=== PATIENT | female | born 1960 | race Caucasian/White ===

== ENCOUNTER → 2018-03-25 12:05 | Outpatient (CLI) | payer OTHER, SELFPAY ==
--- NOTE | 2018-03-25 | DI.MG.S_ITS ---
BILATERAL DIGITAL SCREENING MAMMOGRAM 3D/2D WITH CAD: 03/25/2018 CLINICAL: Routine screening. Comparison is made to exams dated: 02/06/2014 mammogram, 01/07/2013 mammogram, and 10/06/2009 mammogram - [facility]. The tissue of both breasts is heterogeneously dense. This may lower the sensitivity of mammography. Current study was also evaluated with a Computer Aided Detection (CAD) system. No significant masses, calcifications, or other findings are seen in either breast. There has been no significant interval change. IMPRESSION: NEGATIVE There is no mammographic evidence of malignancy. A 1 year screening mammogram is recommended. This exam was interpreted at Station ID: [id number]. NOTE: For mammograms, a report in lay terms will be sent to the patient. Approximately 15% of breast malignancies will not be visualized mammographically. In the management of a palpable breast mass, a negative mammogram must not discourage biopsy of a clinically suspicious lesion. Electronically Signed By: Debra ingram/sera:03/26/2018 10:32:16 letter sent: Normal Exam ACR BI-RADS Category 1: Negative [id number]
== END ==
PROVIDERS: PCP Internal Medicine; Visit Provider Physician Assistant
DX: Z12.31 Encounter for screening mammogram for malignant neoplasm of breast (principal)
CPT/HCPCS: 77063; 77067

== ENCOUNTER → 2018-05-31 09:53 | Outpatient (CLI) | payer OTHER, SELFPAY ==
[2018-05-31 11:27] LABS: Alanine Aminotransferase 26 IU/L (9-52); Albumin 4.1 g/dL (3.5-5.0); Albumin Globulin Ratio 1.3 (1.0-2.8); Alkaline Phosphatase 54 U/L (38-126); Aspartate Aminotransferase 19 IU/L (14-36); Bilirubin Total 0.3 mg/dL (0.2-1.3); Blood Urea Nitrogen 18 mg/dL (7-17); Calcium 9.4 mg/dL (8.4-10.2); Carbon Dioxide 27 mmol/L (22-32); Chloride 104 mmol/L (98-107); Estimated Glomerular Filt Rate > 60.0 mL/min (>60); Globulin 3.1 g/dL (1.7-4.1); Glucose 92 mg/dL (80-110); HEMOLYSIS < 15 (0-50); Potassium 3.8 mmol/L (3.4-5.1); Sodium 139 mmol/L (137-145); Total Protein 7.2 g/dL (6.3-8.2)
== END ==
PROVIDERS: Family Provider Internal Medicine; PCP Internal Medicine; Visit Provider Physician Assistant
DX: B35.1 Tinea unguium (principal)
CPT/HCPCS: 36415; 80053

== ENCOUNTER → 2018-08-15 08:21 | Outpatient (CLI) | payer OTHER, SELFPAY ==
[2018-08-15 11:25] LABS: Cholesterol 225 mg/dL (140-199); HDL Cholesterol 71 mg/dL (40-60); LDL Cholesterol Calculated 126 mg/dL (<100); Triglycerides 138 mg/dL (35-150)
== END ==
PROVIDERS: PCP Internal Medicine; Visit Provider Internal Medicine
DX: Z00.00 Encounter for general adult medical examination without abnormal findings (principal)
CPT/HCPCS: 36415; 80061

== ENCOUNTER 2019-02-26 11:05 | Day surgery (SDC) | payer OTHER, SELFPAY ==
[2019-02-26] VITALS (8 sets, daily range): BP systolic 106–142; BP diastolic 66–81; PULSE 69–75; RESP 12–18; TEMP 36–36.6; O2SAT 93–100; BMI 23.5
[2019-02-26] MEDS: SODIUM CHLORIDE 0.9% 1,000 ML 21 ML IV ×2 (11:46→13:16)
--- NOTE | 2019-02-26 12:50 | PM.HP.1 ---
History of Present Illness History of Present Illness Date Patient Seen: 02/26/19 Time Patient Seen: 12:50 Chief complaint: [id number] Narrative: screening colonoscopy Patient History Family & Social History Social History: household members spouse Meds Home Medications and Allergies Home Medications Medication Instructions Recorded Confirmed Type amlodipine 2.5 mg PO DAILY 02/26/19 02/26/19 History losartan 100 mg PO DAILY 02/26/19 02/26/19 History Allergies Allergy/AdvReac Type Severity Reaction Status Date / Time No Known Drug Allergies Allergy Verified 02/26/19 11:35 Exam Vital Signs (past 8 hours): - 02/26/19 11:36 Temperature 97.9 F Pulse Rate 72 Respiratory Rate 18 Blood Pressure 106/68 Pulse Oximetry 96 Oxygen Delivery Method Room Air Narrative Exam Narrative: Oropharynx free of lesions Chest clear to auscultation percussion Cardiac exam reveals no S3 or murmur Assessment & Plan Assessment & Plan narrative: Need for screening colonoscopy with last colonoscopy over 5 years ago. Risks, benefits, alternatives been explained. Further recommendations will follow the results for colonoscopy.
--- NOTE | 2019-02-26 12:54 | PM.OP.ENDO ---
Operative Date/Time/Diagnoses Date of procedure: 02/26/19 Time of procedure: 12:54 Pre-op diagnosis: See indication and findings Procedure & Clinicians Study performed: Colonoscopy Indications: Screening Surgeon: Marianne Luna Procedure Notes Procedure in detail: After informed consent was obtained the patient was placed in left lateral decubitus position. The video colonoscope was introduced the rectum slowly advanced cecum. On slow withdrawal mucosa was carefully examined. The scope was removed. The patient tolerated the procedure well. Blood loss none Complications none Sedation Total sedation time 19 minutes Versed 9 mg fentanyl 150 micro g IV titration Findings 1. Scattered very small diverticulosis through the sigmoid and left colon 2. Otherwise negative colonoscopy to cecum [place] does not need follow-up colonoscopy for another 10 years. All
[2019-02-26] MEDS: fentaNYL 250 MCG/5 ML INJ IV (13:10)
[2019-02-26] MEDS: MIDAZOLAM 5 MG/5 ML VIAL 3 MG IV (13:10)
[2019-02-26] MEDS: MIDAZOLAM 2 MG/2 ML VIAL 9 MG IV (13:10)
--- NOTE | 2019-02-26 14:29 | SUR.PHASEII ---
pt c/o 10/16 pain in abdomen. Abdomen observed to be distended and painful which palpated. Bowel sounds positive in all four quadrants. Dr. Luna made aware by SCARLETT Arzola. Dr. Luna will come to access pt shortly. Re-positioned pt in bed. pt reported slight relief from re positioning. bed in lowest position and call light given to pt. pt at bedside.
--- NOTE | 2019-02-26 14:38 | SUR.PHASEII ---
Dr. Luna at bedside, assessing pt. Per Dr. Luna, pt instructed to keep working on passing the gas. pt voices understanding.
== END 2019-02-26 15:53 | disposition home or self-care (01) ==
PROVIDERS: PCP Internal Medicine; Visit Provider Internal Medicine Gastroenterology
PROC: 0DJD8ZZ Inspection of Lower Intestinal Tract, Via Natural or Artificial Opening Endoscopic (ICD-10-PCS; CPT 45378; principal; 2019-02-26 12:30)
DX: Z12.11 Encounter for screening for malignant neoplasm of colon (principal); K57.30 Diverticulosis of large intestine without perforation or abscess without bleeding
CPT/HCPCS: 45378; J2250; J3010

== ENCOUNTER → 2019-10-09 17:42 | Outpatient (CLI) | payer OTHER, SELFPAY ==
--- NOTE | 2019-10-09 17:44 | DI.MRI.S_ITS ---
PROCEDURE: MR LUMBAR SPINE WO CON INDICATIONS: lumbago with sciatica TECHNIQUE: Noncontrast sagittal T1 spin echo and T2 fast echo, sagittal STIR, axial T1 and T2 fast spin echo through the lumbar spine. In cases with scoliosis, additional coronal T2 fast spin echo may be performed. COMPARISON: [facility], MR, L-SPINE WITHOUT CONTRAST, 12/15/2014, 19:01. [facility], MR, MR LUMBAR SPINE WITHOUT CONTRAST, 02/21/2018, 14:38. FINDINGS: Image quality: Excellent. Alignment and Curvature: There is grade 1 retrolisthesis of L5 on S1, trace retrolisthesis of L4 on L5, unchanged. Bone Marrow: Marrow is of normal overall signal. Mild to moderate reactive endplate changes are present at L3-4, minimal to mild L4-5 and L5-S1. No acute vertebral body compression fractures. Spinal Cord: Conus medullaris terminates at the L2 level. Visualized cord demonstrates normal signal and size. Tarlov cysts are present at S1-S2. Paraspinous Soft Tissues: No paravertebral masses. Discs: Moderate desiccation is present throughout the lumbar spine. L1-L2: Mild disc bulge including a right posterior lateral protrusion. Mild spinal stenosis. Minimal to mild right foraminal narrowing with facet and ligamentum flavum hypertrophy. No interval change. L2-L3: Mild disc bulge with mild spinal stenosis. Mild bilateral foraminal narrowing with facet and ligamentum flavum hypertrophy. No interval change. L3-L4: Mild disc bulge with severe spinal stenosis and canal compression, unchanged. Mild to moderate right and mild left foraminal narrowing, minimally progressive on the right. Facet and ligamentum flavum hypertrophy are present. L4-L5: Mild disc bulge with moderate spinal stenosis, slightly progressive. Mild bilateral foraminal narrowing with facet and ligamentum flavum hypertrophy. No interval change. L5-S1: Mild disc bulge including a new right posterior paracentral protrusion. There is mild compromise of the right lateral recess. Moderate to severe left foraminal narrowing with slight flattening of the exiting left L5 nerve root. Minimal right foraminal narrowing. Facet and ligamentum flavum hypertrophy are present. IMPRESSION: 1. Multilevel degenerative changes with areas of interval progression as above. 2. Multiple level spinal stenosis most severe at L3-4 secondary to disc bulge which contribute intact the facets are segment of arthropathy. 3. New protrusion at L5-S1 causing compromise of the right lateral recess. Dictated by: Mira Mcgarry M.D. on 10/10/2019 at 11:05 Approved by: Mira Mcgarry M.D. on 10/10/2019 at 11:43
== END ==
PROVIDERS: PCP Internal Medicine; Referring Provider Internal Medicine
DX: M51.17 Intervertebral disc disorders with radiculopathy, lumbosacral region (principal); M51.16 Intervertebral disc disorders with radiculopathy, lumbar region; M48.061 Spinal stenosis, lumbar region without neurogenic claudication; M48.07 Spinal stenosis, lumbosacral region; M47.26 Other spondylosis with radiculopathy, lumbar region; M47.27 Other spondylosis with radiculopathy, lumbosacral region; G89.29 Other chronic pain
CPT/HCPCS: 72148

== ENCOUNTER → 2020-04-19 14:59 | Outpatient (CLI) | payer OTHER, SELFPAY ==
--- NOTE | 2020-04-19 | DI.MG.S_ITS ---
BILATERAL DIGITAL SCREENING MAMMOGRAM 3D/2D WITH CAD: 04/19/2020 CLINICAL: Routine screening. Comparison is made to exams dated: 03/25/2018 mammogram, 02/06/2014 mammogram, and 01/07/2013 mammogram - [facility]. The tissue of both breasts is heterogeneously dense. This may lower the sensitivity of mammography. Current study was also evaluated with a Computer Aided Detection (CAD) system. No significant masses, calcifications, or other findings are seen in either breast. There has been no significant interval change. IMPRESSION: NEGATIVE There is no mammographic evidence of malignancy. A 1 year screening mammogram is recommended. This exam was interpreted at Station ID: [id number]. NOTE: For mammograms, a report in lay terms will be sent to the patient. Approximately 15% of breast malignancies will not be visualized mammographically. In the management of a palpable breast mass, a negative mammogram must not discourage biopsy of a clinically suspicious lesion. Electronically Signed By: Teofilo alvarado/sera:04/19/2020 16:54:22 letter sent: Normal Exam ACR BI-RADS Category 1: Negative [id number]
--- NOTE | 2020-04-19 | DI.RAD.S_ITS ---
PROCEDURE: XR DEXA AXIAL SKELETON INDICATIONS: asymptomatic menopausal state screening COMPARISON: None. FINDINGS: This blank DEXA report has been sent in error by the PACS system. The correct and complete report will be forthcoming in 1-2 days. Thank you for your patience and understanding. Dictated by: Itzel Slade MD, PhD on 04/19/2020 at 17:11 Approved by: Itzel Slade MD, PhD on 04/19/2020 at 17:11
== END ==
PROVIDERS: PCP Internal Medicine; Referring Provider Family Medicine; Visit Provider Family Medicine
DX: Z12.31 Encounter for screening mammogram for malignant neoplasm of breast (principal); M85.852 Other specified disorders of bone density and structure, left thigh; Z78.0 Asymptomatic menopausal state; Z82.62 Family history of osteoporosis
CPT/HCPCS: 77063; 77067; 77080

== ENCOUNTER → 2020-07-23 08:28 | Outpatient (CLI) | payer OTHER, SELFPAY ==
--- NOTE | 2020-07-23 | DI.RAD.S_ITS ---
PROCEDURE: FL UPPER GI W AIR INDICATIONS: DYSPHAGIA COMPARISON: None. FINDINGS: KUB: Preprocedural photo mask processor film demonstrates a normal bowel gas pattern. No suspicious abdominal calcifications. Visualized solid organ contours appear normal. Bony structures appear unremarkable. Esophagus: Esophageal mucosa is normal on air-contrast views. On single-contrast views, there is normal esophageal peristalsis. No strictures, extrinsic mass effects, or diverticula. No hiatal hernia or elicited gastroesophageal reflux. There is normal transit of a calibrated barium tablet through the esophagus. Stomach: The stomach is normally distensible, with normal rugal fold thickness. No mucosal masses or ulcers. Pylorus and duodenal bulb appear normal in morphology. Duodenal folds are normal in thickness as well. 13 millimeter barium tablet administered at end of study readily passed from the oral cavity into the stomach. IMPRESSION: Normal examination. Dictated by: Itzel Slade MD, PhD on 07/23/2020 at 11:34 Approved by: Itzel Slade MD, PhD on 07/23/2020 at 11:36
--- NOTE | 2020-07-23 08:32 | DI.RAD.S_ITS ---
PROCEDURE: XR WRIST RT MIN 3V INDICATIONS: RIGHT WRIST PAIN TECHNIQUE: 4 views of the wrist were acquired. COMPARISON: None. FINDINGS: Bones: No fractures or dislocations. No suspicious bony lesions. Accessory ossicle noted adjacent to the ulnar styloid process. Mild radiocarpal joint and 1st CMC joint osteoarthritis. Scaphoid view: Scaphoid is intact Soft tissues: No suspicious soft tissue calcifications. IMPRESSION: No fracture. No acute osseous lesion. If symptoms and/or clinical suspicion for pathology persists, further assessment with repeat radiographs (7-10 days) or advanced imaging (e.g. CT, MRI or bone scan) should be considered. Dictated by: Itzel Slade MD, PhD on 07/23/2020 at 17:03 Approved by: Itzel Slade MD, PhD on 07/23/2020 at 17:05
--- NOTE | 2020-07-23 08:32 | DI.RAD.S_ITS ---
PROCEDURE: XR HAND LT MIN 3V INDICATIONS: BILATERAL HAND PAIN TECHNIQUE: 3 views of the hand(s) acquired. COMPARISON: None. FINDINGS: Bones: No fractures or dislocations. Carpal bones are normally aligned. No suspicious bony lesions. Large osseous spur involving the trapezium. Mild 1st CMC joint osteoarthritis. Mild 1st, 2nd, 4th and 5th DIP joint osteoarthritis. Soft tissues: No suspicious soft tissue calcifications. IMPRESSION: Osteoarthritis as described above. Dictated by: Itzel Slade MD, PhD on 07/23/2020 at 17:07 Approved by: Itzel Slade MD, PhD on 07/23/2020 at 17:08
--- NOTE | 2020-07-23 08:32 | DI.RAD.S_ITS ---
PROCEDURE: XR HAND RT MIN 3V INDICATIONS: BILATERAL HAND PAIN TECHNIQUE: 3 views of the hand(s) acquired. COMPARISON: None. FINDINGS: Bones: No fractures or dislocations. Carpal bones are normally aligned. No suspicious bony lesions. Mild 1st CMC joint osteoarthritis. Mild osteoarthritis involving the 2nd, 3rd and 5th PIP joints as well as the 1st through 5th DIP joints. Soft tissues: No suspicious soft tissue calcifications. IMPRESSION: Osteoarthritis as described above. Dictated by: Itzel Slade MD, PhD on 07/23/2020 at 17:06 Approved by: Itzel Slade MD, PhD on 07/23/2020 at 17:07
== END ==
PROVIDERS: PCP Family Medicine; Referring Provider Family Medicine; Visit Provider Family Medicine
DX: R13.10 Dysphagia, unspecified (principal); M79.641 Pain in right hand; M25.531 Pain in right wrist; M79.642 Pain in left hand; M18.0 Bilateral primary osteoarthritis of first carpometacarpal joints; M19.042 Primary osteoarthritis, left hand; M19.041 Primary osteoarthritis, right hand; M19.031 Primary osteoarthritis, right wrist
CPT/HCPCS: 73110; 73130; 74240; 74246

== ENCOUNTER 2021-03-05 11:11 | Emergency (ER) | payer OTHER, SELFPAY ==
[2021-03-05] VITALS (7 sets, daily range): BP systolic 128–149; BP diastolic 74–84; PULSE 59–72; RESP 14–25; TEMP 36.4; O2SAT 95–99; BMI 25.1
[2021-03-05 11:37] LABS: Appearance Urine UA CLEAR; Bilirubin Urine UA NEGATIVE (NEGATIVE); Color Urine UA YELLOW; Glucose Urine UA NEGATIVE (Negative); Ketones Urine UA NEGATIVE (NEGATIVE); Leukocyte Esterase Urine UA NEGATIVE (NEGATIVE); Nitrite Urine UA NEGATIVE (Negative); Occult Blood Urine UA TRACE-LYSED (Negative); Protein Urine UA TRACE (Negative); Specific Gravity Urine UA 1.015 (1.000-1.035); Urobilinogen Urine UA 0.2 E.U./dL (0.2)
--- NOTE | 2021-03-05 11:40 | ED.BACK ---
HPI - Back Pain/Injury General Chief Complaint: Back Pain/Injury Stated Complaint: left lower flank pain Time Seen by Provider: 03/05/21 11:33 Source: patient Mode of arrival: Ambulatory Limitations: no limitations History of Present Illness HPI Narrative: Patient is a 60-year-old female who is here for evaluation of left-sided flank pain and now abdominal discomfort. Symptoms started approximately 24 hours ago. No urinary symptoms. Has had a hysterectomy but no prior abdominal surgeries. No change in bowel habits. No fevers. Some nausea but no vomiting. Has not tried anything for the symptoms prior to arrival. Has never had a kidney stone. No history of diverticulitis. Related Data Home Medications Medication Instructions Recorded Confirmed amlodipine 2.5 mg tablet 2.5 mg PO DAILY 02/26/19 11/10/19 losartan 100 mg tablet 100 mg PO DAILY 02/26/19 11/10/19 gabapentin 100 mg capsule 100 mg PO DAILY 11/10/19 11/10/19 Previous Rx's Medication Instructions Recorded CMP Estriol Cream 0.1% See Rx Instructions .ROUTE 12/24/20 .COMPLEX #30 gram ondansetron 4 mg disintegrating 4 mg PO Q6H PRN #14 tab 03/05/21 tablet Allergies Allergy/AdvReac Type Severity Reaction Status Date / Time No Known Drug Allergies Allergy Verified 11/10/19 07:58 Review of Systems Constitutional Constitutional: Reports as per HPI and Reports system reviewed and no additional complaints, except as documented Cardiovascular Cardiovascular: Reports system reviewed and no additional complaints, except as documented Respiratory Respiratory: Reports system reviewed and no additional complaints, except as documented Gastrointestinal Gastrointestinal: Reports as per HPI and Reports system reviewed and no additional complaints, except as documented Genitourinary Genitourinary: Reports system reviewed and no additional complaints, except as documented Musculoskeletal Comments: Left flank/back pain Integumentary/Breasts Skin/Breast: Reports system reviewed and no additional complaints, except as documented Hematologic/Lymphatic On Anticoagulants: No Patient History Medical History H/O vaginal delivery Hypertension Surgical History H/O hysterectomy for benign disease Social History household members: spouse Smoking Status: Never smoker Smoking Status: Never smoker Substance Use Type: does not use Exam Initial Vital Signs Initial Vital Signs: Vital Signs Temperature 97.6 F 03/05/21 11:23 Pulse Rate 72 03/05/21 11:23 Respiratory Rate 16 03/05/21 11:23 Blood Pressure 128/75 03/05/21 11:23 Pulse Oximetry 97 03/05/21 11:23 Const General: cooperative and healthy appearing [facility] Head: normal to inspection and normocephalic Resp Effort & Inspection: normal respiratory effort Auscultation: clear to auscultation bilaterally Cardio Rate: regular rate Rhythm: regular rhythm GI Palpation: soft, No firm and tender (Diffusely tender) Back/Spine/Pelvis Back: CVA tenderness left Skin General: no rashes or lesions noted Neuro General: patient alert, patient awake and moves all extremities Extrem General: normal to inspection and No edema Psych Appearance: grossly normal and well kempt Course Orders Ordered: ED Orders 03/05/21 11:32 Urinalysis and Microscopic Stat Urine Culture Stat 03/05/21 11:35 Complete Blood Count AUTO DIFF Stat Comprehensive Metabolic Panel Stat Lipase Stat Partial Thromboplastin Time Stat Prothrombin Time INR Stat 03/05/21 11:45 CT abdomen pelvis w con Stat Discontinued Medications Sodium Chloride (Normal Saline 0.9%) 1,000 mls @ 1,000 mls/hr IV BOLUS ONE Stop: 03/05/21 12:39 Last Admin: 03/05/21 11:51 Dose: 1,000 mls/hr Documented by: ZOHREH Morphine Sulfate (Morphine 4 Mg/Ml Inj) 4 mg IV NOW ONE Stop: 03/05/21 11:41 Last Admin: 03/05/21 11:51 Dose: 4 mg Documented by: ZOHREH Ondansetron HCl (Ondansetron 4 Mg Odt) 4 mg PO NOW ONE Stop: 03/05/21 11:30 Last Admin: 03/05/21 11:50 Dose: 4 mg Documented by: ZOHREH Vital Signs Vital signs: Vital Signs - 8 hr 03/05/21 11:23 03/05/21 11:47 03/05/21 11:50 Temperature 97.6 F Pulse Rate 72 60 59 L Respiratory Rate 16 14 15 Blood Pressure 128/75 149/82 H Pulse Oximetry 97 97 97 03/05/21 12:00 03/05/21 12:49 03/05/21 12:50 Temperature Pulse Rate 62 62 60 Respiratory Rate 25 H 20 Blood Pressure 141/84 H 141/75 H Pulse Oximetry 99 98 99 03/05/21 13:00 Temperature Pulse Rate 65 Respiratory Rate 21 Blood Pressure 134/74 Pulse Oximetry 95 MDM - Back Pain/Injury Lab Data Attestation: I reviewed the patient's lab results. Result diagrams: 03/05/21 11:35 03/05/21 11:35 Labs: Lab Results 03/05/21 03/05/21 03/05/21 Range/Units 11:32 11:35 11:35 WBC 5.7 (4.5-11.0) X10^3/uL RBC 4.66 (4.0-5.2) X10^6/uL Hgb 13.4 (12.0-16.0) g/dL Hct 39.5 (36-46) % MCV 84.6 (80-100) fL MCH 28.6 (26-34) PG MCHC 33.8 (30-36) % RDW 12.8 (11.6-14.8) % Plt Count 275 (150-400) X10^3/uL Neut % (Auto) 75.7 H (50-75) % Lymph % (Auto) 17.5 L (25-40) % [place] % (Auto) 5.1 (3-14) % Eos % (Auto) 1.0 L (2-4) % Baso % (Auto) 0.7 (0-2) % Neut # (Auto) 4300 (7653-1409) /uL Lymph # (Auto) 1000 L (0527-3817) /uL [place] # (Auto) 300 (0-900) /uL Eos # (Auto) 100 (0-450) /uL Baso # (Auto) 0 (0-100) /uL PT 11.3 (10.1-12.7) SECONDS INR 1.0 (0.9-1.3) APTT 30 (26.4-36.2) SECONDS Sodium (137-145) mmol/L Potassium (3.4-5.1) mmol/L Chloride (98-107) mmol/L Carbon Dioxide (22-32) mmol/L BUN (7-17) mg/dL Creatinine (0.52-1.04) mg/dL Estimated GFR (>60) mL/min BUN/Creatinine Ratio (6-22) Glucose (80-110) mg/dL Calcium (8.4-10.2) mg/dL Total Bilirubin (0.2-1.3) mg/dL AST (14-36) IU/L ALT (<35) IU/L Alkaline Phosphatase (38-126) U/L Total Protein (6.3-8.2) g/dL Albumin (3.5-5.0) g/dL Globulin (1.7-4.1) g/dL Albumin/Globulin Ratio (1.0-2.8) Lipase (23-300) U/L Urine Color Yellow Urine Appearance Clear Urine pH 8.0 (4.5-8.0) Ur Specific [place] 1.015 (1.000-1.035) Urine Protein Trace H (Negative) Urine Glucose (UA) Negative (Negative) g/dL Urine Ketones Negative (NEGATIVE) Urine Occult Blood Trace-lysed (Negative) Urine Nitrate Negative (Negative) Urine Bilirubin Negative (NEGATIVE) Urine Urobilinogen 0.2 (0.2) E.U./dL Ur Leukocyte Esterase Negative (NEGATIVE) Urine RBC 1-5/hpf (0-5/HPF) Urine WBC 0-1/hpf (0-5/HPF) Ur Squamous Epith Cells 1-5 /hpf (0-5/HPF) Amorphous Sediment 2+ Urine Bacteria Few (2-10) H (None) Urine Mucus 1+ H (Negative) Ur Culture Indicated? Specimen cultured 03/05/21 Range/Units 11:35 WBC (4.5-11.0) X10^3/uL RBC (4.0-5.2) X10^6/uL Hgb (12.0-16.0) g/dL Hct (36-46) % MCV (80-100) fL MCH (26-34) PG MCHC (30-36) % RDW (11.6-14.8) % Plt Count (150-400) X10^3/uL Neut % (Auto) (50-75) % Lymph % (Auto) (25-40) % [place] % (Auto) (3-14) % Eos % (Auto) (2-4) % Baso % (Auto) (0-2) % Neut # (Auto) (2431-9827) /uL Lymph # (Auto) (2322-8540) /uL [place] # (Auto) (0-900) /uL Eos # (Auto) (0-450) /uL Baso # (Auto) (0-100) /uL PT (10.1-12.7) SECONDS INR (0.9-1.3) APTT (26.4-36.2) SECONDS Sodium 138 (137-145) mmol/L Potassium 4.2 (3.4-5.1) mmol/L Chloride 103 (98-107) mmol/L Carbon Dioxide 28 (22-32) mmol/L BUN 14 (7-17) mg/dL Creatinine 0.85 (0.52-1.04) mg/dL Estimated GFR > 60.0 (>60) mL/min BUN/Creatinine Ratio 16.5 (6-22) Glucose 106 (80-110) mg/dL Calcium 9.2 (8.4-10.2) mg/dL Total Bilirubin 0.4 (0.2-1.3) mg/dL AST 23 (14-36) IU/L ALT 18 (<35) IU/L Alkaline Phosphatase 47 (38-126) U/L Total Protein 7.5 (6.3-8.2) g/dL Albumin 4.5 (3.5-5.0) g/dL Globulin 3.0 (1.7-4.1) g/dL Albumin/Globulin Ratio 1.5 (1.0-2.8) Lipase 196 (23-300) U/L Urine Color Urine Appearance Urine pH (4.5-8.0) Ur Specific [place] (1.000-1.035) Urine Protein (Negative) Urine Glucose (UA) (Negative) g/dL Urine Ketones (NEGATIVE) Urine Occult Blood (Negative) Urine Nitrate (Negative) Urine Bilirubin (NEGATIVE) Urine Urobilinogen (0.2) E.U./dL Ur Leukocyte Esterase (NEGATIVE) Urine RBC (0-5/HPF) Urine WBC (0-5/HPF) Ur Squamous Epith Cells (0-5/HPF) Amorphous Sediment Urine Bacteria (None) Urine Mucus (Negative) Ur Culture Indicated? Imaging Data CT scan - abdomen/pelvis: Radiologist's Impression: [address] [address] [address] Scan Report Signed Patient: Shiloh Whittaker MR#: [id number] : 1960 Acct:[id number] Age/Sex: 60 / F Date of Service: 03/05/21 Loc: ED Accession Number: [id number] ?? Procedure: CT abdomen pelvis w con Ordering Provider: Dom Parikh D.O. PROCEDURE:? CT ABDOMEN PELVIS W CON ? INDICATIONS:? Left-sided abdominal pain ? TECHNIQUE:? After the administration of IV contrast, axial sections were acquired from the lung bases to the pubic symphysis.? Coronal and sagittal reformats were performed.? For radiation dose reduction, the following was used:? automated exposure control, adjustment of mA and/or kV according to patient size. ? COMPARISON:? [facility], , [place] ABDOMEN COMPLETE, 02/08/2018, 13:29. ? FINDINGS:? Image quality:? Excellent.? ? Lung bases:? Unremarkable.? ? Heart:? No significant findings. ? ? ABDOMEN: Liver:? A likely cavernous liver hemangioma can be seen involving the right lateral liver measures 21 x 25 mm in greatest axial dimension.? Peripheral puddling of contrast can be seen.? The liver demonstrates normal size and demonstrates no additional focal abnormalities. Gallbladder:? Layering gallstones can be seen within the gallbladder. Biliary ducts:? Unremarkable.? ? Pancreas:? Unremarkable.? ? The pancreatic duct is not dilated. Spleen:? Unremarkable.? ? Adrenal Glands:? Unremarkable.? ? Kidneys and Ureters:? Unremarkable.? ? ? Stomach and Bowel:? Stomach, small bowel loops, and colon are unremarkable.? Distal colonic diverticulosis is seen, without findings active diverticulitis. A normal appendix is incidentally noted.? Peritoneum:? No abnormal intraperitoneal fluid.? No free air.? ? Ventral Wall: A mild periumbilical hernia is seen, containing fat. ? Abdominal Nodes:? No retroperitoneal or mesenteric adenopathy by size criteria.? Vessels:? Aorta and inferior vena cava are normal in size.? ? PELVIS: Pelvic Organs: This patient is status post hysterectomy. No adnexal masses are seen.? Bladder:? Unremarkable.? ? Pelvic Nodes: No enlarged lymph nodes.? Miscellaneous: No inguinal hernias are seen. ? ? ? Bones:? Lumbar spine degenerative changes are seen, with milder degenerative changes seen elsewhere. ? ? IMPRESSION:? ? A cause of left-sided abdominal pain is not seen. ? There is distal colonic diverticulosis, without findings of active diverticulitis. ? Incidental note is made of: Liver hemangioma Gallstones Mild fat containing periumbilical hernia Normal appendix Hysterectomy Lumbar spine degenerative change ? Dictated by: Robbie Batista M.D. on 03/05/2021 at 11:48 ? ? Approved by: Robbie Batista M.D. on 03/05/2021 at 11:51? MDM Narrative Medical decision making narrative: Patient does have a benign abdominal exam. Labs are unremarkable. CT scan shows diverticulosis but no signs of diverticulitis. No signs of pyelonephritis. No signs of kidney/ureteral stones. Normal appendix. She does have gallbladder stones however she has no pain in the right upper quadrant. There is no skin rashes over the area concerning for zoster. Unsure the exact etiology of the patient's symptoms but does not appear to be an infectious nor surgical etiology today. I did discuss this with her and her was at bedside. I did discuss strict return precautions. They expressed understanding and agreement. Discharge Plan Departure Patient Disposition: Home Clinical Impression: Left flank pain Activity Restrictions/Additional Instructions: Your workup here in the emergency department is very reassuring. Your labs are unremarkable. There is no signs of any infection. I do recommend you take all of your medications as directed. Return to the emergency department for any new or worsening symptoms Prescriptions: New ondansetron 4 mg tablet,disintegrating 4 mg PO Q6H PRN (Reason: nausea and vomiting) Qty: 14 0RF No Action CMP Estriol Cream 0.1% See Rx Instructions .ROUTE .COMPLEX Qty: 30 3RF Rx Instructions: Apply 1 gram to vagina at bedtime 2 times per week gabapentin 100 mg capsule 100 mg PO DAILY 0RF amlodipine 2.5 mg Tablet 2.5 mg PO DAILY 0RF losartan 100 mg Tablet 100 mg PO DAILY 0RF Referrals: Sean Rey MD [Primary Care Provider] -
[2021-03-05 11:43] LABS: RBC Urine 1-5/HPF (0-5/HPF); WBC Urine 0-1/HPF (0-5/HPF)
[2021-03-05 11:44] LABS: Amorphous Sediment Urine 2+; Bacteria Urine Few (2-10); Culture Indicated Urine Specimen Cultured; Mucus Urine 1+ (Negative); Squamous Epithelial Cell Urine 1-5 /HPF (0-5/HPF)
--- NOTE | 2021-03-05 11:45 | DI.CT.S_ITS ---
PROCEDURE: CT ABDOMEN PELVIS W CON INDICATIONS: Left-sided abdominal pain TECHNIQUE: After the administration of IV contrast, axial sections were acquired from the lung bases to the pubic symphysis. Coronal and sagittal reformats were performed. For radiation dose reduction, the following was used: automated exposure control, adjustment of mA and/or kV according to patient size. COMPARISON: [facility], US, US ABDOMEN COMPLETE, 02/08/2018, 13:29. FINDINGS: Image quality: Excellent. Lung bases: Unremarkable. Heart: No significant findings. ABDOMEN: Liver: A likely cavernous liver hemangioma can be seen involving the right lateral liver measures 21 x 25 mm in greatest axial dimension. Peripheral puddling of contrast can be seen. The liver demonstrates normal size and demonstrates no additional focal abnormalities. Gallbladder: Layering gallstones can be seen within the gallbladder. Biliary ducts: Unremarkable. Pancreas: Unremarkable. The pancreatic duct is not dilated. Spleen: Unremarkable. Adrenal Glands: Unremarkable. Kidneys and Ureters: Unremarkable. Stomach and Bowel: Stomach, small bowel loops, and colon are unremarkable. Distal colonic diverticulosis is seen, without findings active diverticulitis. A normal appendix is incidentally noted. Peritoneum: No abnormal intraperitoneal fluid. No free air. Ventral Wall: A mild periumbilical hernia is seen, containing fat. Abdominal Nodes: No retroperitoneal or mesenteric adenopathy by size criteria. Vessels: Aorta and inferior vena cava are normal in size. PELVIS: Pelvic Organs: This patient is status post hysterectomy. No adnexal masses are seen. Bladder: Unremarkable. Pelvic Nodes: No enlarged lymph nodes. Miscellaneous: No inguinal hernias are seen. Bones: Lumbar spine degenerative changes are seen, with milder degenerative changes seen elsewhere. IMPRESSION: A cause of left-sided abdominal pain is not seen. There is distal colonic diverticulosis, without findings of active diverticulitis. Incidental note is made of: Liver hemangioma Gallstones Mild fat containing periumbilical hernia Normal appendix Hysterectomy Lumbar spine degenerative change Dictated by: Robbie Batista M.D. on 03/05/2021 at 11:48 Approved by: Robbie Batista M.D. on 03/05/2021 at 11:51
[2021-03-05 11:49] LABS: Add Manual Diff / Slide Review NO; Basophils Absolute Auto 0 /uL (0-100); Basophils Percent Auto 0.7 % (0-2); Eosinophils Absolute Auto 100 /uL (0-450); Hematocrit 39.5 % (36-46); Hemoglobin 13.4 g/dL (12.0-16.0); Lymphocytes Absolute Auto 1000 /uL (1100-4500); Lymphocytes Percent Auto 17.5 % (25-40); Mean Corpuscular HGB Conc 33.8 % (30-36); Mean Corpuscular Hemoglobin 28.6 PG (26-34); Mean Corpuscular Volume 84.6 fL (80-100); Monocytes Absolute Auto 300 /uL (0-900); Monocytes Percent Auto 5.1 % (3-14); Neutrophils Absolute Auto 4300 /uL (1500-7000); Neutrophils Percent Auto 75.7 % (50-75); Platelet Count 275 X10^3/uL (150-400); Red Blood Cell Count 4.66 X10^6/uL (4.0-5.2); Red Cell Distribution Width 12.8 % (11.6-14.8); White Blood Cell Count 5.7 X10^3/uL (4.5-11.0)
[2021-03-05] MEDS: ONDANSETRON 4 MG ODT PO (11:50)
[2021-03-05] MEDS: SODIUM CHLORIDE 0.9% 1,000 ML 1000 ML IV (11:51)
[2021-03-05] MEDS: MORPHINE 4 MG/ML INJ IV (11:51)
[2021-03-05 11:56] LABS: Prothrombin Time 11.3 SECONDS (10.1-12.7)
[2021-03-05 11:58] LABS: PTT Partial Thromboplastin Tim 30 SECONDS (26.4-36.2)
[2021-03-05 12:00] LABS: Alanine Aminotransferase 18 IU/L (<35); Albumin 4.5 g/dL (3.5-5.0); Albumin Globulin Ratio 1.5 (1.0-2.8); Alkaline Phosphatase 47 U/L (38-126); Aspartate Aminotransferase 23 IU/L (14-36); BUN Creatinine Ratio 16.5 (6-22); Bilirubin Total 0.4 mg/dL (0.2-1.3); Blood Urea Nitrogen 14 mg/dL (7-17); Calcium 9.2 mg/dL (8.4-10.2); Carbon Dioxide 28 mmol/L (22-32); Chloride 103 mmol/L (98-107); Estimated Glomerular Filt Rate > 60.0 mL/min (>60); Glucose 106 mg/dL (80-110); HEMOLYSIS < 15 (0-50); Lipase 196 U/L (23-300); Potassium 4.2 mmol/L (3.4-5.1); Sodium 138 mmol/L (137-145); Total Protein 7.5 g/dL (6.3-8.2)
== END 2021-03-05 13:36 | disposition home or self-care (01) ==
PROVIDERS: Emergency Provider Emergency Medicine; PCP Family Medicine
DX: R10.9 Unspecified abdominal pain (principal); K57.90 Diverticulosis of intestine, part unspecified, without perforation or abscess without bleeding
CPT/HCPCS: 36415; 74177; 80053; 81001; 83690; 85025; 85610; 85730; 87086; 96374; 99284; J2270; Q9967

== ENCOUNTER → 2021-03-10 13:15 | Outpatient (CLI) | payer OTHER, SELFPAY ==
[2021-03-10 14:00] LABS: Add Manual Diff / Slide Review NO; Basophils Absolute Auto 0 /uL (0-100); Basophils Percent Auto 0.6 % (0-2); Eosinophils Absolute Auto 100 /uL (0-450); Eosinophils Percent Auto 1.2 % (2-4); Hematocrit 39.3 % (36-46); Hemoglobin 13.3 g/dL (12.0-16.0); Lymphocytes Absolute Auto 1200 /uL (1100-4500); Lymphocytes Percent Auto 18.4 % (25-40); Mean Corpuscular HGB Conc 33.8 % (30-36); Mean Corpuscular Hemoglobin 28.7 PG (26-34); Monocytes Absolute Auto 400 /uL (0-900); Monocytes Percent Auto 6.4 % (3-14); Neutrophils Absolute Auto 4900 /uL (1500-7000); Neutrophils Percent Auto 73.4 % (50-75); Platelet Count 286 X10^3/uL (150-400); Red Blood Cell Count 4.62 X10^6/uL (4.0-5.2); Red Cell Distribution Width 12.9 % (11.6-14.8); White Blood Cell Count 6.7 X10^3/uL (4.5-11.0)
[2021-03-10 14:29] LABS: Erythrocyte Sedimentation Rate 39 MM/HR (0-20)
[2021-03-10 14:37] LABS: Alanine Aminotransferase 18 IU/L (<35); Albumin 4.4 g/dL (3.5-5.0); Albumin Globulin Ratio 1.5 (1.0-2.8); Alkaline Phosphatase 48 U/L (38-126); Amylase 61 U/L (30-110); Aspartate Aminotransferase 23 IU/L (14-36); BUN Creatinine Ratio 16.8 (6-22); Bilirubin Total 0.4 mg/dL (0.2-1.3); Blood Urea Nitrogen 16 mg/dL (7-17); C-Reactive Protein Quant 0.6 mg/dL (<1.0); Calcium 10.2 mg/dL (8.4-10.2); Carbon Dioxide 32 mmol/L (22-32); Chloride 98 mmol/L (98-107); Estimated Glomerular Filt Rate 59.6 mL/min (>60); Glucose 100 mg/dL (80-110); HEMOLYSIS < 15 (0-50); Lipase 132 U/L (23-300); Potassium 4.6 mmol/L (3.4-5.1); Sodium 136 mmol/L (137-145); Total Protein 7.4 g/dL (6.3-8.2)
== END ==
PROVIDERS: PCP Family Medicine; Referring Provider Family Medicine; Visit Provider Family Medicine
DX: R10.9 Unspecified abdominal pain (principal)
CPT/HCPCS: 36415; 80053; 82150; 83690; 85025; 85651; 86140

== ENCOUNTER → 2021-04-22 07:22 | Outpatient (CLI) | payer OTHER, SELFPAY ==
--- NOTE | 2021-04-22 | DI.MG.S_ITS ---
BILATERAL DIGITAL SCREENING MAMMOGRAM 3D/2D WITH CAD: 04/22/2021 CLINICAL: Routine screening. Comparison is made to exams dated: 04/19/2020 mammogram, 03/25/2018 mammogram, and 02/06/2014 mammogram - [facility]. There are scattered fibroglandular elements in both breasts. Current study was also evaluated with a Computer Aided Detection (CAD) system. No significant masses, calcifications, or other findings are seen in either breast. There has been no significant interval change. IMPRESSION: NEGATIVE There is no mammographic evidence of malignancy. A 1 year screening mammogram is recommended. This exam was interpreted at Station ID: [id number]. NOTE: For mammograms, a report in lay terms will be sent to the patient. Approximately 15% of breast malignancies will not be visualized mammographically. In the management of a palpable breast mass, a negative mammogram must not discourage biopsy of a clinically suspicious lesion. Electronically Signed By: Radha wagoner/sera:04/22/2021 12:00:07 letter sent: Normal Exam ACR BI-RADS Category 1: Negative [id number]
== END ==
PROVIDERS: PCP Family Medicine; Referring Provider Family Medicine; Visit Provider Family Medicine
DX: Z12.31 Encounter for screening mammogram for malignant neoplasm of breast (principal)
CPT/HCPCS: 77063; 77067

== ENCOUNTER → 2022-09-01 08:44 | Outpatient (CLI) | payer OTHER, SELFPAY ==
--- NOTE | 2022-09-01 08:47 | DI.RAD.S_ITS ---
PROCEDURE: XR LUMBAR SPINE 2-3V INDICATIONS: low back pain, left shoulder pain TECHNIQUE: 3 views of the lumbar spine were acquired. COMPARISON: None. FINDINGS: Bones: 5 [id number] vertebrae are present. Moderate disc height loss at all levels. No vertebral compression deformities identified. Soft tissues: Overlying bowel gas pattern is normal. No suspicious soft tissue calcifications. IMPRESSION: Moderate disc height loss at all levels. Dictated by: Rick Castrejon M.D. on 09/01/2022 at 11:39 Approved by: Rick Castrejon M.D. on 09/01/2022 at 11:40
--- NOTE | 2022-09-01 08:47 | DI.RAD.S_ITS ---
PROCEDURE: XR SHOULDER LT MIN 2V INDICATIONS: low back pain, left shoulder pain TECHNIQUE: 3 views of the shoulder were acquired. COMPARISON: None. FINDINGS: Bones: No fractures or dislocations. No suspicious bony lesions. Visualized ribs appear intact. Acromioclavicular joint space narrowing with associated osteophytosis. Soft tissues: No suspicious soft tissue calcifications. IMPRESSION: Mild acromioclavicular osteoarthritis. Dictated by: Rick Castrejon M.D. on 09/01/2022 at 11:08 Approved by: Rick Castrejon M.D. on 09/01/2022 at 11:09
== END ==
PROVIDERS: PCP Family Medicine; Referring Provider Family Medicine; Visit Provider Family Medicine
DX: M19.90 Unspecified osteoarthritis, unspecified site (principal)
CPT/HCPCS: 72100; 73030

== ENCOUNTER → 2022-09-06 12:21 | Outpatient (CLI) | payer OTHER, SELFPAY ==
--- NOTE | 2022-09-06 | DI.MRI.S_ITS ---
PROCEDURE: MR LUMBAR SPINE WO CON INDICATIONS: Radiculopathy, lumbar region TECHNIQUE: Noncontrast sagittal T1 spin echo and T2 fast echo, sagittal STIR, and T2 fast spin echo through the lumbar spine. In cases with scoliosis, additional coronal T2 fast spin echo may be performed. COMPARISON: [facility], , MR LUMBAR SPINE WO CON, 10/09/2019, 17:55. FINDINGS: Image quality: Excellent. Alignment and Curvature: There is normal bony alignment. Bone Marrow: Marrow is of normal overall signal. No acute vertebral body compression fractures. Spinal Cord: Conus medullaris terminates at the L1 level. Visualized cord demonstrates normal signal and size. Paraspinous Soft Tissues: No paravertebral masses. T12-L1: Normal appearance. L1-L2: Disc space narrowing with circumferential disc bulge present. No central or foraminal stenosis L2-L3: Disc height is preserved. Circumferential disc bulge and hypertrophic facet joints present. No central or foraminal stenosis L3-L4: Disc height is preserved. Circumferential disc bulge and hypertrophic facet joints results in severe central stenosis. Moderate left and no right foraminal stenosis L4-L5: Disc space narrowing with circumferential disc bulge and hypertrophic facet joints results in moderate central stenosis. Moderate left and no right foraminal stenosis L5-S1: Disc space narrowing with circumferential disc bulge and hypertrophic facet joints present. No central stenosis. Moderate right and severe left foraminal stenosis IMPRESSION: Multilevel degenerative disc disease and arthropathy results in varying degrees of central and foraminal stenosis including severe central stenosis L3-4 Approved by: Laith Hardin M.D. on 09/07/2022 at 13:21
== END ==
PROVIDERS: PCP Family Medicine; Referring Provider Family Medicine; Visit Provider Family Medicine
DX: M54.16 Radiculopathy, lumbar region (principal); M48.061 Spinal stenosis, lumbar region without neurogenic claudication; M51.36 Other intervertebral disc degeneration, lumbar region; M47.816 Spondylosis without myelopathy or radiculopathy, lumbar region
CPT/HCPCS: 72148

== ENCOUNTER 2022-09-13 14:42 | Observation (INO) | payer OTHER, SELFPAY ==
[2022-09-13] VITALS (16 sets, daily range): BP systolic 123–188; BP diastolic 73–85; PULSE 65–84; RESP 14–34; TEMP 35.7–36.1; O2SAT 97–100; BMI 24.2
--- NOTE | 2022-09-13 15:02 | DI.CT.S_ITS ---
PROCEDURE: CT STROKE INDICATIONS: Dizziness TECHNIQUE: Noncontrast 4.5 mm thick angled axial sections acquired from the foramen magnum to the vertex, with coronal reformats. For radiation dose reduction, the following was used: automated exposure control, adjustment of mA and/or kV according to patient size. COMPARISON: None. FINDINGS: Image quality: Excellent. CSF spaces: Basal cisterns are patent. No extra-axial fluid collections. Ventricles are normal in size and shape. Brain: No midline shift. No intracranial masses or hemorrhage. [place]-white matter interface is normal. Skull and face: Calvarium and visualized facial bones are intact, without suspicious lesions. Sinuses: Visualized sinuses and mastoids are clear. IMPRESSION: No acute intracranial pathology. Findings discussed with Dr. Chang at at 3:18 p.m. On 09/13/2022 This study fulfills neurological imaging criteria for inclusion or exclusion of acute stroke therapies based on available published neurological imaging guidelines. Dictated by: Rick Castrejon M.D. on 09/13/2022 at 15:16 Approved by: Rick Castrejon M.D. on 09/13/2022 at 15:19
--- NOTE | 2022-09-13 15:03 | DI.CT.S_ITS ---
PROCEDURE: CT ANGIO HEAD AND NECK INDICATIONS: Dizziness TECHNIQUE: After the administration of intravenous contrast, 1 mm thick sections acquired from the aortic arch through the [place]. Post-contrast 4.5 mm thick sections then re-acquired from the foramen magnum to the vertex. 3-dimensional mfybedu-ijjnzvftq-xhvkjbbjtp (MIP) and/or volume rendering reformats were acquired of the central intracranial vasculature and neck separately. For radiation dose reduction, the following was used: automated exposure control, adjustment of mA and/or kV according to patient size. COMPARISON: [facility], CT, CT STROKE, 09/13/2022, 15:10. FINDINGS: Image quality: Excellent. BRAIN: CSF spaces: Ventricles are normal in size and shape. Basal cisterns are patent. No extra-axial fluid collections. Brain: No midline shift. No intracranial bleeds or masses. [place]-white matter interface appears intact. Skull and face: Calvarium and facial bones appear intact, without suspicious lesions. Orbits appear normal. Sinuses: Sinuses and mastoids are clear. HEAD CT ANGIOGRAPHY: Anterior circulation: Intracranial internal carotid arteries are normal in size and flow. The flow within the paired anterior cerebral arteries is normal and symmetric. The flow within the middle cerebral arteries is normal and symmetric. The anterior communicating artery is seen. No aneurysms are seen. Posterior circulation: Visualized portions of the vertebral arteries demonstrate normal caliber, and join to form a normal appearing basilar artery. The distal left vertebral artery is dominant. The distal right vertebral artery is somewhat diminutive. Flow within the posterior cerebral arteries is normal and symmetric. No aneurysms are seen. NECK CT ANGIOGRAPHY: Carotid system: The great vessels demonstrate a bovine anatomy as they arise from the aortic arch. The origins of the common carotid arteries appear patent. The common carotid arteries demonstrate normal caliber and courses. There is mixed calcified and soft right carotid bifurcation plaque without significant stenosis. The internal carotid arteries demonstrate mild bilateral less than 50% proximal internal carotid artery stenosis. Posterior circulation: The origins of the vertebral arteries both appear widely patent. The right vertebral artery is somewhat diminutive. The left vertebral artery is dominant. The more superior extracranial portions of both vertebral arteries also demonstrate normal courses and calibers. They join to form a normal appearing basilar artery. Soft tissues: Visualized neck soft tissues demonstrate no suspicious abnormalities. Bones: No suspicious bony lesions. Visualized cervical spine appears normally aligned. IMPRESSION: 1. No acute intracranial process. 2. Unremarkable CTA head. No stenosis, aneurysm, occlusion, or focal filling defect. 3. Bilateral mild less than 50% internal carotid artery proximal stenosis. Comment: Findings were discussed with Dr. Alexander on 09/13/2022 at 1544 hours Any quantitative measurements of stenosis were performed using NASCET criteria. Dictated by: Aristeo Saxena M.D. on 09/13/2022 at 15:38 Approved by: Aristeo Saxena M.D. on 09/13/2022 at 15:46
[2022-09-13 15:13] LABS: Add Manual Diff / Slide Review NO; Basophils Absolute Auto 100 /uL (0-100); Basophils Percent Auto 0.7 % (0-2); Eosinophils Absolute Auto 200 /uL (0-450); Eosinophils Percent Auto 2.2 % (2-4); Hematocrit 38.7 % (36-46); Hemoglobin 13.2 g/dL (12.0-16.0); Lymphocytes Absolute Auto 2200 /uL (1100-4500); Lymphocytes Percent Auto 28.3 % (25-40); Mean Corpuscular HGB Conc 34.2 % (30-36); Mean Corpuscular Hemoglobin 28.9 PG (26-34); Mean Corpuscular Volume 84.5 fL (80-100); Monocytes Absolute Auto 500 /uL (0-900); Monocytes Percent Auto 6.4 % (3-14); Neutrophils Absolute Auto 4900 /uL (1500-7000); Neutrophils Percent Auto 62.4 % (50-75); Platelet Count 295 X10^3/uL (150-400); Red Blood Cell Count 4.58 X10^6/uL (4.0-5.2); Red Cell Distribution Width 13.3 % (11.6-14.8); White Blood Cell Count 7.8 X10^3/uL (4.5-11.0)
[2022-09-13 15:19] LABS: Prothrombin Time 11.6 SECONDS (10.1-12.7)
--- NOTE | 2022-09-13 15:20 | ED.NEUROSD ---
HPI - Neuro Symptoms/Deficit General Chief Complaint: Neuro Symptoms/Deficit Stated Complaint: thinks she is having a stroke Time Seen by Provider: 09/13/22 15:02 Mode of arrival: Wheelchair History of Present Illness HPI Narrative: Code stroke was called at 2:59 p.m.. Last well known was 1:30 p.m. today. Patient brought in by for sudden onset dizziness. Patient states feels like her environment is spinning around her. Has had nausea. Has prior history of vertigo but this is more severe. No prior history of stroke. denies any slurred speech facial droop or limb numbness tingling or weakness. Patient denies any allergies. Dizziness worse with opening eyes. Fast exam is negative. Patient immediately received IV access and brought to CT scan imaging. There has been no injury to the neck. Patient denies any headache. No chest pain no palpitations. No recent illness On Anticoagulants: No Related Data Home Medications Medication Instructions Recorded Confirmed amlodipine 2.5 mg tablet 5 mg PO DAILY 02/26/19 09/13/22 losartan 100 mg tablet 100 mg PO DAILY 02/26/19 09/13/22 meloxicam 15 mg PO DAILY back pain 09/13/22 09/13/22 Previous Rx's Medication Instructions Recorded aspirin 81 mg tablet,delayed 81 mg PO BEDTIME #100 tabs 09/14/22 release Allergies Allergy/AdvReac Type Severity Reaction Status Date / Time No Known Drug Allergies Allergy Verified 09/13/22 16:12 Review of Systems Review of Systems Narrative: GENERAL: negative chills, fatigue, malaise, fever, sweats. HEENT: negative sinus pain, ear pain, sore throat RESPIRATORY: negative dyspnea, cough CARDIOVASCULAR: negative chest pain, palpitations GASTROINTESTINAL: Positive nausea negative vomiting, abdominal pain : negative dysuria, frequency, hematuria MUSCULOSKELETAL: negative muscle or bony pain SKIN: negative rash, skin lesions NEUROLOGIC: negative weakness, numbness, positive dizziness ROS Unobtainable: All systems reviewed & are unremarkable except as noted in HPI and below Hematologic/Lymphatic On Anticoagulants: No Patient History Medical History H/O vaginal delivery Hypertension Surgical History H/O hysterectomy for benign disease Social History household members: spouse Smoking Status: Never smoker Smoking Status: Never smoker Substance Use Type: does not use Exam Narrative Exam Narrative: GENERAL: in no distress, not toxic not dyspneic HEAD: Normocephalic. EYES: Pupils equal round ENT: Mucous membranes moist. NECK: Trachea midline. CARDIOVASCULAR: Regular rate and rhythm without murmurs RESPIRATORY: Clear to auscultation. Breath sounds equal bilaterally. No wheezes, rales, or rhonchi. GASTROINTESTINAL: Abdomen soft, non-tender EXTREMITIES: No gross deformities. BACK: No flank tenderness. NEURO: AOx4. Fast exam is negative. Patient has clear speech no facial droop light touch intact about face hands and feet. Shoes are removed. Negative pronator drift. Jlruku-rl-ezsf and nmjg-ss-coos intact bilaterally. Lives each arm and leg individually off the bed and holds for 10 seconds. No drift. SKIN: Warm and dry PSYCH: Not anxious, is cooperative Initial Vital Signs Initial Vital Signs: Vital Signs Temperature 96.2 F L 09/13/22 15:00 Pulse Rate 84 09/13/22 15:00 Respiratory Rate 18 09/13/22 15:00 Blood Pressure 148/76 H 09/13/22 15:00 Pulse Oximetry 100 09/13/22 15:00 Oxygen Delivery Method Room Air 09/13/22 15:00 Scores NIH Stroke Scale Level of Conciousness: Alert, keenly responsive Ask month/age: Answers both questions correctly. Open/close eyes, close hand: Performs both tasks correctly Best gaze horizontal: Normal Visual palacios: No visual loss Facial palsy: Normal symetrical movement Left arm drift: No drift for full 10 sec Right arm drift: No drift for full 10 sec Left leg drift: No drift for full 5 sec Right leg drift: No drift for full 5 sec Limb ataxia: Absent Sensory on face/arms/legs: Normal, no sensory loss Best language: No aphasia, normal Dysarthria: Normal Extinction or inattention: No abnormality Total NIH Stroke scale score: 0 Course Orders Ordered: Discontinued Medications Acetaminophen (Acetaminophen 325 Mg Tablet) 650 mg PO Q6H PRN PRN Reason: Fever/Mild Pain (1-3) Al Hydrox/Mg Hydrox/Simethicone (Mag Hydrox/Alum/Simeth 30 Ml Udc) 30 ml PO Q6HR PRN PRN Reason: Dyspepsia Amlodipine Besylate (Amlodipine 5 Mg Tablet) 5 mg PO DAILY [facility] Amlodipine Besylate (Amlodipine 5 Mg Tablet) 5 mg PO BEDTIME [facility] Last Admin: 09/13/22 21:37 Dose: 5 mg Documented By: CHANDNI Aspirin (Aspirin Ec 81 Mg Tablet) 81 mg PO DAILY [facility] Aspirin (Aspirin Ec 81 Mg Tablet) 81 mg PO BEDTIME [facility] Last Admin: 09/13/22 21:37 Dose: 81 mg Documented By: CHANDNI Sodium Chloride (Normal Saline 0.9%) 500 mls @ 1,000 mls/hr IV BOLUS ONE Stop: 09/13/22 16:26 Last Infusion: 09/13/22 16:40 Dose: 0 mls/hr Documented By: Admin: 09/13/22 16:00 Dose: 1,000 mls/hr Documented By: MARIE Losartan Potassium (Losartan 50 Mg Tablet) 100 mg PO DAILY [facility] Losartan Potassium (Losartan 50 Mg Tablet) 100 mg PO BEDTIME [facility] Last Admin: 09/13/22 21:38 Dose: 100 mg Documented By: CHANDNI Magnesium Hydroxide (Magnesium Hydroxide 30 Ml Udc) 30 ml PO DAILY PRN PRN Reason: Constipation Naloxone HCl (Naloxone 0.4 Mg/Ml Vial) 0.2 mg IV Q2MIN PRN PRN Reason: Opiate Reversal Non-Formulary Medication (Amlodipine) 5 mg PO DAILY [facility] Ondansetron HCl (Ondansetron 4 Mg/2 Ml Inj) 4 mg IV NOW ONE Stop: 09/13/22 15:23 Last Admin: 09/13/22 15:32 Dose: 4 mg Documented By: MARIE Ondansetron HCl (Ondansetron 4 Mg/2 Ml Inj) 4 mg IV Q8HR PRN PRN Reason: Nausea And Vomiting Prochlorperazine (Prochlorperazine 10 Mg/2 Ml Vial) 5 mg IV NOW ONE Stop: 09/13/22 15:05 Last Admin: 09/13/22 16:07 Dose: Not Given Documented By: MARIE Vital Signs Vital signs: Vital Signs - 8 hr 09/13/22 15:00 09/13/22 15:17 09/13/22 15:19 Temperature 96.2 F L Pulse Rate 84 68 67 Respiratory Rate 18 34 H 30 H Blood Pressure 148/76 H Pulse Oximetry 100 100 100 Oxygen Delivery Method Room Air 09/13/22 15:19 09/13/22 15:20 09/13/22 15:20 Temperature Pulse Rate 66 Respiratory Rate 25 H Blood Pressure 172/84 H 167/82 H Pulse Oximetry 100 Oxygen Delivery Method 09/13/22 15:25 09/13/22 15:25 09/13/22 15:30 Temperature Pulse Rate 68 66 Respiratory Rate 24 28 H Blood Pressure 172/85 H Pulse Oximetry 100 100 Oxygen Delivery Method MDM - Neuro Symptoms/Deficit Lab Data 09/13/22 15:02 09/13/22 15:02 Labs: Lab Results 09/13/22 09/13/22 09/13/22 Range/Units 15:02 15:02 15:02 WBC 7.8 (4.5-11.0) X10^3/uL RBC 4.58 (4.0-5.2) X10^6/uL Hgb 13.2 (12.0-16.0) g/dL Hct 38.7 (36-46) % MCV 84.5 (80-100) fL MCH 28.9 (26-34) PG MCHC 34.2 (30-36) % RDW 13.3 (11.6-14.8) % Plt Count 295 (150-400) X10^3/uL Neut % (Auto) 62.4 (50-75) % Lymph % (Auto) 28.3 (25-40) % [place] % (Auto) 6.4 (3-14) % Eos % (Auto) 2.2 (2-4) % Baso % (Auto) 0.7 (0-2) % Neut # (Auto) 4900 (7036-0299) /uL Lymph # (Auto) 2200 (6021-0339) /uL [place] # (Auto) 500 (0-900) /uL Eos # (Auto) 200 (0-450) /uL Baso # (Auto) 100 (0-100) /uL PT 11.6 (10.1-12.7) SECONDS INR 1.0 (0.9-1.3) APTT 25 L (26-36) SECONDS Sodium 137 (137-145) mmol/L Potassium 3.3 L (3.4-5.1) mmol/L Chloride 103 (98-107) mmol/L Carbon Dioxide 25 (22-32) mmol/L BUN 21 H (7-17) mg/dL Creatinine 0.79 (0.52-1.04) mg/dL Estimated GFR > 60 (>60) mL/min BUN/Creatinine Ratio 26.6 H (6-22) Glucose 134 H (80-110) mg/dL Calcium 9.6 (8.4-10.2) mg/dL Total Bilirubin 0.7 (0.2-1.3) mg/dL AST 24 (14-36) IU/L ALT 26 (<35) IU/L Alkaline Phosphatase 65 (38-126) U/L Total Creatine Kinase 88 (30-135) U/L CK-MB (CK-2) TNP CK-MB (CK-2) Rel Index TNP Troponin I < 0.012 (0.01-0.034) ng/mL Total Protein 7.9 (6.3-8.2) g/dL Albumin 4.6 (3.5-5.0) g/dL Globulin 3.3 (1.7-4.1) g/dL Albumin/Globulin Ratio 1.4 (1.0-2.8) Point of Care Testing Glucose POC [address] scan - head: Radiologist's Impression: [place] [address] CT Scan Report Signed Patient: Shiloh Whittaker MR#: [id number] : 1960 Acct:[id number] Age/Sex: 62 / F Date of Service: 09/13/22 Loc: ED Accession Number: [id number] ?? Procedure: CT Stroke Ordering Provider: Yo Alexander MD PROCEDURE:? CT STROKE ? INDICATIONS:? Dizziness ? TECHNIQUE:? Noncontrast 4.5 mm thick angled axial sections acquired from the foramen magnum to the vertex, with coronal reformats.? For radiation dose reduction, the following was used:? automated exposure control, adjustment of mA and/or kV according to patient size.? ? COMPARISON:? None. ? FINDINGS:? Image quality:? Excellent.? ? CSF spaces:? Basal cisterns are patent.? No extra-axial fluid collections.? Ventricles are normal in size and shape.? ? Brain:? No midline shift.? No intracranial masses or hemorrhage.? [place]-white matter interface is normal.? ? Skull and face:? Calvarium and visualized facial bones are intact, without suspicious lesions.? ? Sinuses:? Visualized sinuses and mastoids are clear.? ? IMPRESSION:? No acute intracranial pathology.? ? Findings discussed with Dr. Chang at at 3:18 p.m. On 09/13/2022 ? This study fulfills neurological imaging criteria for inclusion or exclusion of acute stroke therapies based on available published neurological imaging guidelines.? ? ? Dictated by: Rick Castrejon M.D. on 09/13/2022 at 15:16 ? ? Approved by: Rick Castrejon M.D. on 09/13/2022 at 15:19 ? CTA - brain/neck: Radiologist's Impression: [address] [address] [address] Scan Report Signed Patient: hSiloh Whittaker MR#: [id number] : 1960 Acct:[id number] Age/Sex: 62 / F Date of Service: 09/13/22 Loc: ED Accession Number: [id number] ?? Procedure: CT angio head and neck Ordering Provider: Yo Alexander MD PROCEDURE:? CT ANGIO HEAD AND NECK ? INDICATIONS:? Dizziness ? TECHNIQUE:? After the administration of intravenous contrast, 1 mm thick sections acquired from the aortic arch through the [place] of [place].? Post-contrast 4.5 mm thick sections then re-acquired from the foramen magnum to the vertex.? 3-dimensional syptlts-nagzilzkd-wgsuicohjs (MIP) and/or volume rendering reformats were acquired of the central intracranial vasculature and neck separately. For radiation dose reduction, the following was used:? automated exposure control, adjustment of mA and/or kV according to patient size.? ? COMPARISON:? [facility], CT, CT STROKE, 09/13/2022, 15:10. ? FINDINGS:? Image quality:? Excellent.? ? BRAIN:? CSF spaces:? Ventricles are normal in size and shape.? Basal cisterns are patent.? No extra-axial fluid collections.? ? Brain:? No midline shift.? No intracranial bleeds or masses.? [place]arnsworth-white matter interface appears intact.? ? Skull and face:? Calvarium and facial bones appear intact, without suspicious lesions.? Orbits appear normal.? ? Sinuses:? Sinuses and mastoids are clear.? ? HEAD CT ANGIOGRAPHY:? Anterior circulation:? Intracranial internal carotid arteries are normal in size and flow.? The flow within the paired anterior cerebral arteries is normal and symmetric.? The flow within the middle cerebral arteries is normal and symmetric.? The anterior communicating artery is seen.? No aneurysms are seen.? ? Posterior circulation:? Visualized portions of the vertebral arteries demonstrate normal caliber, and join to form a normal appearing basilar artery.? The distal left vertebral artery is dominant.? The distal right vertebral artery is somewhat diminutive.? Flow within the posterior cerebral arteries is normal and symmetric.? No aneurysms are seen.? ? NECK CT ANGIOGRAPHY:? Carotid system:? The great vessels demonstrate a bovine anatomy as they arise from the aortic arch.? The origins of the common carotid arteries appear patent.? The common carotid arteries demonstrate normal caliber and courses.? There is mixed calcified and soft right carotid bifurcation plaque without significant stenosis.? The internal carotid arteries demonstrate mild bilateral less than 50% proximal internal carotid artery stenosis. ? Posterior circulation:? The origins of the vertebral arteries both appear widely patent.? The right vertebral artery is somewhat diminutive.? The left vertebral artery is dominant.? The more superior extracranial portions of both vertebral arteries also demonstrate normal courses and calibers.? They join to form a normal appearing basilar artery.? ? Soft tissues:? Visualized neck soft tissues demonstrate no suspicious abnormalities.? ? Bones:? No suspicious bony lesions.? Visualized cervical spine appears normally aligned.? IMPRESSION:? ? 1. No acute intracranial process. ? 2. Unremarkable CTA head.? No stenosis, aneurysm, occlusion, or focal filling defect. ? 3. Bilateral mild less than 50% internal carotid artery proximal stenosis.? ? Comment: Findings were discussed with Dr. Alexander on? 09/13/2022 at 1544 hours ? ? Any quantitative measurements of stenosis were performed using NASCET criteria.? ? ? Dictated by: Aristeo Saxena M.D. on 09/13/2022 at 15:38 ? ? Approved by: Aristeo Saxena M.D. on 09/13/2022 at 15:46 ? MDM Narrative Medical decision making narrative: Code stroke was called at 2:59 p.m.. Last well known was 1:30 p.m. today. Patient brought in by for sudden onset dizziness. Patient states feels like her environment is spinning around her. Has had nausea. Has prior history of vertigo but this is more severe. No prior history of stroke. denies any slurred speech facial droop or limb numbness tingling or weakness. Patient denies any allergies. Dizziness worse with opening eyes. Fast exam is negative. Patient immediately received IV access and brought to CT scan imaging. There has been no injury to the neck. Patient denies any headache. No chest pain no palpitations. No recent illness After history and exam CBC CMP troponin EKG CT stroke protocol CT angiogram head and neck IV fluid MDM CC: Dizziness Complicating co-morbidities: None Data collected from: Patient and Medical records reviewed: No previous visits here for this complaint Differential considered: Includes but not limited to stroke TIA dehydration vertigo Exam documented above, pertinent findings include: Fast exam is negative Lab Test results independently reviewed as above. Pertinent findings: WBC 7.8 hemoglobin 13.2 hematocrit 38.7 sodium 137 potassium 3.3 GFR greater than 60 BUN 21 creatinine 0.79 troponin less than 0.012 Independently reviewed EKG normal sinus rhythm rate [address] elevation or depression Imaging studies independently reviewed: CT head no acute process CT angiogram head and neck no acute process Consultations: 3:18 p.m.. Spoke with the radiologist head CT without contrast no acute process 3:27 p.m.. Spoke with tele stroke neurologist, dr purcell, patient's symptoms are rapidly improving. Would not do tPA at this time. Would admit for balance a workup including MRI and echocardiogram. 3:[address] Rey, family physician. He will admit patient. Treatments: Normal saline Re-evaluations: 3:15 p.m.. Patient able to open her eyes and look at me without getting nauseous. Her nausea has improved. However rapid movement of the eyes will trigger nausea and dizziness. She was not able to open her eyes previously on arrival. Patient able to sit up in bed to change into a gown without nausea or dizziness. 4 p.m.. Patient symptoms have resolved. No dizziness no nausea. Sitting up in bed without any dizziness or nausea. Discussion: Appropriate for admission for TIA workup. Patient symptoms improved rapidly on arrival. No tPA indicated, I did review with tele stroke neurologist. Reviewed with primary care and will admit patient. Diagnosis: Dizziness Discharge Plan Departure Patient Disposition: Admitted as Observation Clinical Impression: Dizziness Admit Date/Time: 09/13/22 15:56 Admit Provider: Sean Rey
[2022-09-13 15:21] LABS: PTT Partial Thromboplastin Tim 25 SECONDS (26-36)
[2022-09-13 15:24] LABS: Alanine Aminotransferase 26 IU/L (<35); Albumin 4.6 g/dL (3.5-5.0); Albumin Globulin Ratio 1.4 (1.0-2.8); Alkaline Phosphatase 65 U/L (38-126); Aspartate Aminotransferase 24 IU/L (14-36); BUN Creatinine Ratio 26.6 (6-22); Bilirubin Total 0.7 mg/dL (0.2-1.3); Blood Urea Nitrogen 21 mg/dL (7-17); Calcium 9.6 mg/dL (8.4-10.2); Carbon Dioxide 25 mmol/L (22-32); Chloride 103 mmol/L (98-107); Creatine Kinase 88 U/L (30-135); Estimated Glomerular Filt Rate > 60 mL/min (>60); Globulin 3.3 g/dL (1.7-4.1); Glucose 134 mg/dL (80-110); HEMOLYSIS < 15 (0-50); Potassium 3.3 mmol/L (3.4-5.1); Sodium 137 mmol/L (137-145); Total Protein 7.9 g/dL (6.3-8.2)
[2022-09-13] MEDS: ONDANSETRON 4 MG/2 ML INJ IV (15:32)
[2022-09-13 15:35] LABS: Troponin I < 0.012 ng/mL (0.01-0.034)
[2022-09-13] MEDS: SODIUM CHLORIDE 0.9% 500 ML 1000 ML IV (16:00)
[2022-09-13 17:32] LABS: Appearance Urine UA CLEAR; Bilirubin Urine UA NEGATIVE (NEGATIVE); Color Urine UA ORANGE; Glucose Urine UA NEGATIVE (Negative); Ketones Urine UA 1+ (NEGATIVE); Leukocyte Esterase Urine UA NEGATIVE (NEGATIVE); Nitrite Urine UA NEGATIVE (Negative); Occult Blood Urine UA NEGATIVE (Negative); Protein Urine UA NEGATIVE (Negative); Urobilinogen Urine UA 0.2 E.U./dL (0.2)
[2022-09-13 17:39] LABS: Amorphous Sediment Urine 1+; Bacteria Urine None Seen; Culture Indicated Urine Cult Not Indicated; RBC Urine None Seen (0-5/HPF); Squamous Epithelial Cell Urine None Seen (0-5/HPF); WBC Urine None Seen (0-5/HPF)
--- NOTE | 2022-09-13 18:53 | P.HP_ITS ---
History of Present Illness History of Present Illness Date Patient Seen: 09/13/22 Time Patient Seen: 18:53 Chief complaint: thinks she is having a stroke Narrative: Patient is a 62-year-old female essentially in excellent health except for hypertension who presents with acute-onset severe vertigo. Patient was in her usual state of health and was out sitting in the sun drinking a Pepsi with friends got up to do some yd work and been over to check a hose and suddenly started feeling a little dizzy. No palpitations chest pain she is had no fevers chills or other changes. She does did not feel well and this was about 130. She then went and laid down figured it was just a little overheating and beginning having increasing dizziness. To the point where if she did not close her eyes she was going to throw up. She had no significant headaches visual symptoms no facial changes no numbness no tingling no motor changes otherwise. After 15 or 20 minutes see then crawled into her daughter and threw up. They brought some ice and now had been going about an hour hour and a half. She was brought to the emergency room. She was given Zofran and then started to feel better. She is almost completely resolved at this point. No previous issues like this. She has had some periods where she had some left arm numbness. But no other complaint or problem. No real risk factors for stroke. She has had some decreased hearing and some tinnitus. Has had some few episodes of previous dizziness but no other change [facility] Medical History H/O vaginal delivery Hypertension Surgical History H/O hysterectomy for benign disease Social History household members: spouse Smoking Status: Never smoker Meds Home Medications and Allergies Home Medications Medication Instructions Recorded Confirmed Type amlodipine 2.5 mg tablet 5 mg PO DAILY 02/26/19 09/13/22 History losartan 100 mg tablet 100 mg PO DAILY 02/26/19 09/13/22 History meloxicam 15 mg PO DAILY back pain 09/13/22 09/13/22 History Allergies Allergy/AdvReac Type Severity Reaction Status Date / Time No Known Drug Allergies Allergy Verified 09/13/22 16:12 Review of Systems Review of Systems Narrative: All negative except above Exam Vital Signs (past 8 hours): - 09/13/22 15:00 09/13/22 15:17 09/13/22 15:19 Temperature 96.2 F L Pulse Rate 84 68 67 Respiratory Rate 18 34 H 30 H Blood Pressure 148/76 H Pulse Oximetry 100 100 100 Oxygen Delivery Method Room Air 09/13/22 15:19 09/13/22 15:20 09/13/22 15:20 Temperature Pulse Rate 66 Respiratory Rate 25 H Blood Pressure 172/84 H 167/82 H Pulse Oximetry 100 Oxygen Delivery Method 09/13/22 15:25 09/13/22 15:25 09/13/22 15:30 Temperature Pulse Rate 68 66 Respiratory Rate 24 28 H Blood Pressure 172/85 H Pulse Oximetry 100 100 Oxygen Delivery Method 09/13/22 15:35 09/13/22 15:37 09/13/22 15:37 Temperature Pulse Rate 67 66 Respiratory Rate 22 Blood Pressure 188/85 H Pulse Oximetry 100 100 Oxygen Delivery Method 09/13/22 15:40 09/13/22 15:45 09/13/22 15:50 Temperature Pulse Rate 68 69 74 Respiratory Rate 20 21 Blood Pressure Pulse Oximetry 100 99 99 Oxygen Delivery Method 09/13/22 15:55 09/13/22 16:00 09/13/22 16:05 Temperature Pulse Rate 66 67 65 Respiratory Rate 14 23 18 Blood Pressure Pulse Oximetry 100 99 100 Oxygen Delivery Method Oxygen Delivery Method Room Air Narrative Exam Narrative: Alert smiling female lying in bed no acute distress. Pupils are equal and responsive to light. Few beats of lateral gaze nystagmus. No vertical. EOMI is intact. Mucous membranes moist neck supple without adenopathy JVD or bruits lungs are clear heart is regular rate and rhythm w ithout murmur. Abdomen is benign extremities without cyanosis clubbing edema. Neurologic exam shows cranial nerves 2-12 are intact motor is 5/5 reflexes 2+ and symmetric mbgjlk-[id number] bowp-zc-hfil are normal. Babinski normal. Downgoing. Did not do Romberg or gait Objective Labs 09/13/22 15:02 09/13/22 15:02 Labs: Laboratory Results - last 24 hr 09/13/22 09/13/22 09/13/22 15:02 15:02 15:02 WBC 7.8 RBC 4.58 Hgb 13.2 Hct 38.7 MCV 84.5 MCH 28.9 MCHC 34.2 RDW 13.3 Plt Count 295 Neut % (Auto) 62.4 Lymph % (Auto) 28.3 [place] % (Auto) 6.4 Eos % (Auto) 2.2 Baso % (Auto) 0.7 Neut # (Auto) 4900 Lymph # (Auto) 2200 [place] # (Auto) 500 Eos # (Auto) 200 Baso # (Auto) 100 PT 11.6 INR 1.0 APTT 25 L Sodium 137 Potassium 3.3 L Chloride 103 Carbon Dioxide 25 BUN 21 H Creatinine 0.79 Estimated GFR > 60 BUN/Creatinine Ratio 26.6 H Glucose 134 H Calcium 9.6 Total Bilirubin 0.7 AST 24 ALT 26 Alkaline Phosphatase 65 Total Creatine Kinase 88 CK-MB (CK-2) TNP CK-MB (CK-2) Rel Index TNP Troponin I < 0.012 Total Protein 7.9 Albumin 4.6 Globulin 3.3 Albumin/Globulin Ratio 1.4 Urine Color Urine Appearance Urine pH Ur Specific [place] Urine Protein Urine Glucose (UA) Urine Ketones Urine Occult Blood Urine Nitrate Urine Bilirubin Urine Urobilinogen Ur Leukocyte Esterase Urine RBC Urine WBC Ur Squamous Epith Cells Amorphous Sediment Urine Bacteria Ur Culture Indicated? 09/13/22 16:10 WBC RBC Hgb Hct MCV MCH MCHC RDW Plt Count Neut % (Auto) Lymph % (Auto) [place] % (Auto) Eos % (Auto) Baso % (Auto) Neut # (Auto) Lymph # (Auto) [place] # (Auto) Eos # (Auto) Baso # (Auto) PT INR APTT Sodium Potassium Chloride Carbon Dioxide BUN Creatinine Estimated GFR BUN/Creatinine Ratio Glucose Calcium Total Bilirubin AST ALT Alkaline Phosphatase Total Creatine Kinase CK-MB (CK-2) CK-MB (CK-2) Rel Index Troponin I Total Protein Albumin Globulin Albumin/Globulin Ratio Urine Color [place] Urine Appearance Clear Urine pH 8.0 Ur Specific [place] 1.010 Urine Protein Negative Urine Glucose (UA) Negative Urine Ketones 1+ H Urine Occult Blood Negative Urine Nitrate Negative Urine Bilirubin Negative Urine Urobilinogen 0.2 Ur Leukocyte Esterase Negative Urine RBC None seen Urine WBC None seen Ur Squamous Epith Cells None seen Amorphous Sediment 1+ Urine Bacteria None seen Ur Culture Indicated? Cult not indicated Assessment & Plan Assessment & Plan narrative: Severe vertigo now resolved. Certainly concerning for possible posterior vertebral circulation issue now resolved. CT scan EKG and lab work all within normal limits. Now on aspirin a day. Will obtain MRI echo and will observe for the next 24 hours. Will use potline monitor and watch for arrhythmias but I think it is unlikely Will continue her usual medicines and follow. Patient understands questions answered discussed with both her and her Hypertension. Seems to be doing well now. Will follow. GI prophylaxis not needed DVT prophylaxis low risk will do mechanical only. Code status full. Disposition. Will place on monitor echo and MRI if negative will go home on asp irin tomorrow.
[2022-09-13] MEDS: AMLODIPINE 5 MG TABLET PO (21:37)
[2022-09-13] MEDS: ASPIRIN EC 81 MG TABLET PO (21:37)
[2022-09-13] MEDS: LOSARTAN 50 MG TABLET 100 MG PO (21:38)
[2022-09-14 05:16] VITALS: BP 136/66; PULSE 64; RESP 20; TEMP 36.1; O2SAT 97
[2022-09-14 07:00] VITALS: BP 109/69; PULSE 68; RESP 18; TEMP 36.5; O2SAT 97
--- NOTE | 2022-09-14 08:32 | DI.ECHO.S_ITS ---
[facility] +---------+ : : [address] : : : : [id number] : : : : Phone: [phone]+ Echocardiogram Report + + :Name: EAGLE SHAIKH Study Date: 09/14/2022 Height: 66 in : :[facility] ReadingLocation: Weight: 156 lb: : Gender: Female BSA: 1.8 m2 : :: 1960 Age: 62 yrs : :Reason For Study: RULE OUT STROKE : :Ordering Physician: DILIA, : :JERAMY Performed By: Christine Kemp : :Referring: JERAMY DOBBS : + + Interpretation Summary 1) Normal left ventricular thickness, size, wall motion, and systolic function (EF 60-65%). 2) Normal right ventricular size and function. 3) No significant valvular abnormalities. 4) Injection of contrast documented no interatrial shunt. 5) Compared to the echo done 10/06/2009, no significant change. Procedure: A two-dimensional transthoracic echocardiogram with color flow and Doppler was performed. The study quality was technically adequate. There is no prior echocardiogram noted for this patient. A saline contrast injection was performed to assess for cardiac shunting. The injection was performed through an intravenous line in the right arm. The patient was in sinus rhythm with heart rates between 59-63 bpm during the exam. Left Ventricle: The left ventricle is normal in size and wall thickness. The ejection fraction is estimated to be 60-65%. Left ventricular systolic function appears normal without focal wall motion abnormalities. Diastolic parameters suggest probable normal left ventricular diastolic function and normal filling pressures. Right Ventricle: The right ventricle is normal in size and function. Atria: The left atrial size is normal. Right atrial size is normal. There is no Doppler evidence for an interatrial shunt. Injection of contrast documented no interatrial shunt. Mitral Valve: The mitral valve is normal in structure and function. There is trace mitral regurgitation. Aortic Valve: The aortic valve is trileaflet. The aortic valve opens well. There is no aortic valve stenosis. No aortic regurgitation is present. Tricuspid Valve: The tricuspid valve is normal in structure and function. There is mild tricuspid regurgitation. The right ventricular systolic pressure is estimated to be at least 22 mmHg based on an estimated right atrial pressure of 3 mm Hg. Pulmonic Valve: The pulmonic valve leaflets are thin and pliable; valve motion is normal. There is trace pulmonic regurgitation. Great Vessels: The aortic root is not well visualized. The IVC is of normal diameter and collapses greater than 50% with a sniff. This suggests a low right atrial pressure of 3 mm Hg. Pericardium/ Pleura There is no pericardial effusion. There is no pleural effusion. MMode/2D Measurements & Calculations LVIDd: 4.5 cm LVOT diam: 2.1 cm LVIDs: 3.2 cm Ao Arch Diam (Prox Trans): 2.8 cm FS: 29.2 % EPSS: 0.71 cm IVSd: 0.69 cm LVPWd: 0.64 cm LV sesay. diameter/BSA (cm/m^2): 2.5 LV sys. diameter/BSA (cm/m^2): 1.8 LA A2 area: 14.1 cm2 RA long axis: 4.0 cm LA A4 area: 10.0 cm2 RA area: 9.6 cm2 LA length (vol): 3.7 cm RA vol: 19.7 ml LA vol: 32.5 ml RA : 11.0 ml/m2 LA vol index: 18.1 ml/m2 IVC diam: 1.00 cm RVD1 (basal): 3.0 cm RVD2 (mid): 2.5 cm TAPSE: 2.0 cm Doppler Measurements & Calculations Ao V2 max: 119.0 cm/sec LVOT Max Balaji: 74.3 cm/sec Ao V2 mean: 88.1 cm/sec LV V1 max P.2 mmHg Ao max P.7 mmHg LV V1 VTI: 13.8 cm Ao mean P.4 mmHg KAREN(I,D): 1.8 cm2 Ao V2 VTI: 27.8 cm KAREN(V,D): 2.3 cm2 sev ratio: 0.50 KAREN indexed to BSA (cm^2/m^2): 1.0 MV E max balaji: 76.2 cm/sec TR max balaji: 216.9 cm/sec MV A max balaji: 78.5 cm/sec TR max P.8 mmHg MV E/A: 0.97 PA V2 max: 91.5 cm/sec Med Peak E' Balaji: 7.4 cm/sec PA V2 mean: 68.3 cm/sec E/E' med: 10.3 PA mean P.0 mmHg Lat Peak E' Balaji: 6.8 cm/sec PA pr(Accel): 15.6 mmHg E/E' lat: 11.2 E/e' average: 10.8 MV dec time: 0.21 sec SV(LVOT): 50.2 ml Reading Physician:12:22 PM
--- NOTE | 2022-09-14 09:54 | PT.IIE ---
Surgical History (Last Reviewed 09/13/22 @ 18:55 by Sean Rey MD) H/O hysterectomy for benign disease Medical History (Last Reviewed 09/13/22 @ 18:55 by Sean Rey MD) H/O vaginal delivery Hypertension Physical Therapy Inpatient Evaluation/Re-Eval M1 PT/OT-IP Prior Functional Status Start: 09/14/22 09:34 Freq: NEEDED Status: Active Protocol: Document 09/14/22 09:34 ES (Rec: 09/14/22 09:52 ES [id number]) Medical Review Prior Functional Status Medical History Reviewed Yes Diet/Fluid Consistency Regular Communication Indep Mobility and Gait Indep Activities of Daily Living and IADL's Indep Prior Functional Level (Other details) Able to drive Social History Household Members spouse Living Arrangements House Number of Floors (Floors) One Floor Number of Stairs To Enter/Railing? 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 M2 PT-IP Current Condition Start: 09/14/22 09:34 Freq: NEEDED Status: Active Protocol: Document 09/14/22 09:34 ES (Rec: 09/14/22 09:52 ES [id number]) Physical Therapy Current Condition Current Condition Evaluation Date 09/14/22 Treatment Diagnosis Vertigo Onset Date 09/13/22 M3 PT-IP Subjective Start: 09/14/22 09:34 Freq: NEEDED Status: Active Protocol: Document 09/14/22 09:34 ES (Rec: 09/14/22 09:52 ES [id number]) Subjective Physical Therapy Visit Type Type Initial Evaluation Visit Start Time 09:03 Visit Stop Time 09:22 Total Visit Minutes 19 Physical Therapy Visit Comments Patient Comments Patient reported her dizziness is significantly better today than yesterday. Still feels off from her normal though. Has had brief bouts of vertigo in the past that resolved quickly. Has a hx of low back and LLE pain, and the hospital bed has been uncomfortable for her back. present during visit. M4 PT-IP Mobility and Gait Start: 09/14/22 09:34 Freq: NEEDED Status: Active Protocol: Document 09/14/22 09:34 ES (Rec: 09/14/22 09:52 ES [id number]) PT-Bed Mobility Assessment Supine to Sit Supine to Sit Independent,Head of Bed Elevated Sit to Supine Sit to Supine Independent,Head of Bed Elevated Scooting Scooting to Edge of Bed Independent Scooting Up and Down in Bed Independent PT-Transfer Assessment Sit to and From Stand Sit to and from Stand Standby Assistance Equipment Transfer Assistive Device Gait Belt Transfers Transfer Destination Bed Transfer Technique Ambulated Transfer Ability Level of Assist Standby Assistance Comments Mobility Comments No dizziness/lightheadedness with transition to standing. Gait Assessment Gait Gait Assistance Required: Standby Assistance Distance (Feet) 400 Assistive Devices Assistive Device Gait Belt Comments Gait Comments Unsteadiness noted with turning head and body. Mild path deviation noted with forward walking. Able to self- correct LOB without assistance . PT-Balance Assessment Sitting Balance and Reactions Static Sitting Balance Ability Good Dynamic Sitting Balance Ability Good Standing Balance and Reactions Static Standing Balance Ability Good Dynamic Standing Balance Ability Fair Device Used None Balance Tests Single Limb Standing >10 seconds Tandem Standing 4 seconds Comments Other Balance Tests/Deviations/Treatment Feet together eyes open = >10 : seconds, increased postural sway, no LOB Feet together eyes closed = < 10 seconds, LOB/stepping M5 PT-IP Objective Assessments Start: 09/14/22 09:34 Freq: NEEDED Status: Active Protocol: Document 09/14/22 09:34 ES (Rec: 09/14/22 09:52 ES [id number]) Orientation Orientation/Cognition Level of Alertness Alert Orientation Name,Age,Birthday,Month,Date, Year,Day of Week,Place, Situation Language Function Ability No Deficits Noted Safety Awareness Understands Safety Issues Memory Description No Deficits Noted Gross Range of Motion Upper Extremity ROM Assessment Within Functional Limits Lower Extremity ROM Assessment Within Functional Limits Strength Upper Extremity Strength Assessment Within Functional Limits Lower Extremity Strength Assessment Within Functional Limits Other Assessments Other Other Assessments Smooth pursuits = normal Saccades = normal (horiz and vert) VOR = no deficits noted, no dizziness VOR suppression = normal M6 PT-IP Treatment Start: 09/14/22 09:34 Freq: NEEDED Status: Active Protocol: Document 09/14/22 09:34 ES (Rec: 09/14/22 09:52 ES [id number]) Physical Therapy Treatment Education Education Provided Safety M7 PT-IP Assessment and Plan Start: 09/14/22 09:34 Freq: NEEDED Status: Active Protocol: Document 09/14/22 09:34 ES (Rec: 09/14/22 09:52 ES [id number]) PT Summary Assessment and Plan Potential Rehabilitation Potential Fair Status of Condition at Evaluation Evolving Summary Impairments Balance,Transfers,Gait Assessment Summary Patient is a 62 year old female admitted with vertigo, now improved. Patient demonstrated impaired standing balance, with unsteadiness noted particularly with head and body turns when ambulating and transferring. She denied lightheadedness or shortness of breath. She had delayed balance reactions and had LOB with balance testing in tandem stance eyes open and also with narrow stance eyes closed . Depending on MRI and echo results, she may benefit from OPPT for vestibular rehab to address balance/vestibular deficits. Will continue to follow during acute stay to address safety and mobility as needed; otherwise patient should be able to d/c home with family when medically appropriate. Goals Transfer Goal Independent Gait Goal Independent Gait Distance 500 Days to Meet Goals 3 Frequency of Treatment Frequency Of Treatment Once a Day Treatment Plan Physical Therapy Treatment Plan Transfer Training,Gait Training,Balance Retraining, Neuromuscular Re-ed Precautions Other Precautions Fall risk Recommendations To Nursing Amount of Assist Needed Standby Assistance Discharge Recommendations PT Discharge Recommendations Home with Assistance, Outpatient PT Other Discharge Recommendations OPPT for vestibular rehab Transportation Needs at Discharge Private Vehicle
--- NOTE | 2022-09-14 10:18 | SLP.IPNOTE ---
DRY KILN OPERATOR HELPER attempted to see pt at 1010. Pt was being transferred for MRI. Will re-attempt when pt is available.
[2022-09-14 11:44] VITALS: BP 132/70; PULSE 65; RESP 18; TEMP 36.4; O2SAT 97
--- NOTE | 2022-09-14 12:03 | OT.IP.EVAL ---
Past Medical History (Last Reviewed 09/13/22 @ 18:55 by Sean Rey MD) H/O vaginal delivery Hypertension Surgical History (Last Reviewed 09/13/22 @ 18:55 by Sean Rey MD) H/O hysterectomy for benign disease Occupational Therapy Inpatient Evaluation/Re-Eval M1 PT/OT-IP Prior Functional Status Start: 09/14/22 09:34 Freq: NEEDED Status: Active Protocol: Document 09/14/22 09:34 ES (Rec: 09/14/22 09:52 ES [id number]) Medical Review Prior Functional Status Medical History Reviewed Yes Diet/Fluid Consistency Regular Communication Indep Mobility and Gait Indep Activities of Daily Living and IADL's Indep Prior Functional Level (Other details) Able to drive Social History Household Members spouse Living Arrangements House Number of Floors (Floors) One Floor Number of Stairs To Enter/Railing? 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 M2 OT-IP Current Condition Start: 09/14/22 12:08 Freq: Status: Active Protocol: Document 09/14/22 11:51 [facility] (Rec: 09/14/22 12:23 [facility] [id number]) Occupational Therapy Current Condition Current Condition Evaluation Date 09/14/22 Treatment Diagnosis Dizziness Diagnosis Onset Date 09/13/22 M3 OT- IP Subjective and Pain Start: 09/14/22 12:08 Freq: Status: Active Protocol: Document 09/14/22 11:51 [facility] (Rec: 09/14/22 12:23 [facility] [id number]) OT- Subjective Occupational Therapy Visit Type Type Initial Evaluation Visit Start Time 11:51 Visit Stop Time 12:03 Total Visit Minutes 12 Occupational Therapy Visit Comments Patient Comments Pt agreed to get up, pt's in the room. Patient/Caregiver Goals To go home. OT Pain Assessment Pain When Pain Assessed At Rest Pain Present Pain Present Denied Pain M4 OT- IP ADL's Start: 09/14/22 12:08 Freq: Status: Active Protocol: Document 09/14/22 11:51 [facility] (Rec: 09/14/22 12:23 [facility] [id number]) OT GGU-Styv-Qcurtts General Evaluation Self-Feeding Ability Independent OT ADL-Grooming General Evaluation Grooming Ability Independent OT ADL-Oral Care General Eval Oral Care Ability Independent OT ADL-Dressing General Eval Lower Body Dressing Ability Independent Areas Needing Assistance Socks OT ADL-Toileting General Evaluation Toileting Ability Independent Comments OT Toileting Comments Pt states has been independently using the bathroom on her own. OT ADL-Bathing Comments OT Bathing Comments Pt agreed to have the shower stool handy as she is feeling a little unsteady on her feet at times. M6 OT- IP Functional Cognition Start: 09/14/22 12:08 Freq: Status: Active Protocol: Document 09/14/22 11:51 [facility] (Rec: 09/14/22 12:23 [facility] [id number]) Cognitive Factors Limiting Selfcare Function Cognitive Ability Level of Alertness Alert Patient Orientation Name,Age,Birthday,Month,Date, Year,Day of Week,Place, Situation Attention Span Ability Capable of Focused Attention, Capable of Sustained Attention Ability to Follow Commands Able to Follow Multi-Step Commands Memory Description No Deficits Noted Safety Awareness No Deficits Noted Problem Solving Ability No deficits Noted Executive Function Ability No Deficits Noted Cognitive Comments Cognitive Assessment Comments Pt scored 55 seconds on Pana making Part B which implies normal for visual attention, speed of processing, mental flexibility, executive functioning, and task switching. Pt feel that she is 95% back to normal and mainly just at times a little unsteady on her feet. OT- Vision and Hearing OT- Hearing Assessment OT- Hearing Assessment WFL OT- Vision Assessment Visual Acuity Glasses For Reading Visual Attentiveness WFL Occular Pursuits WFL Visual Convergence WFL M7 OT- IP Mobility and Balance Start: 09/14/22 12:08 Freq: Status: Active Protocol: Document 09/14/22 11:51 [facility] (Rec: 09/14/22 12:23 [facility] [id number]) OT- Bed Mobility Assessment Rolling Type of Rolling Log Rolling Level of Assistance Independent Supine to Sit Supine to Sit Assist Independent Sit to Supine Sit to Supine Assist Independent Scooting Scooting to Edge of Bed Independent OT-Transfer Assessment Sit to and From Stand Sit to and from Stand Independent Transfers Transfer Ability Independent Technique Transfer Destination Bed,Chair Devices Transfer Assistive Devices None Comments Mobility Comments Pt able to mobilize independently in the room. OT- Balance Assessment Sitting Balance and Reactions Static Sitting Balance Ability Normal Dynamic Sitting Balance Ability Normal Standing Balance and Reactions Static Standing Balance Ability Normal Dynamic Standing Balance Ability Good M9 OT- IP Assessment and Plan Start: 09/14/22 12:08 Freq: Status: Active Protocol: Document 09/14/22 11:51 [facility] (Rec: 09/14/22 12:23 [facility] [id number]) OT Summary Assessment and Plan Potential Rehabilitation Potential Excellent Analytic Complexity at Evaluation Low Summary OT Impairments Functional Mobility,Bathing Progress Towards Goals Safe For Discharge Assessment Summary Pt low complexity and main barrier is unsteady on her feet at time but overall close to her baseline per pt 95%. Suggested pt have the shower stool for showering, but otherwise doing well. Pt has a supportive to assist with her needs as needed. Pt states will not drive yet but did score well for Pana Making Part B -55seconds which implies normal for her cognition with no deficits. Discharge pt for OT services. Frequency of Treatment Frequency Of Treatment Discharge Discharge Recommendations OT Discharge Recommendations Home with Assistance Transportation Needs at Discharge Private Vehicle
--- NOTE | 2022-09-14 13:59 | CM.DANOTE ---
Initial DCP Assessment Note Patient is a 62 yo female presented with sx of severe vertigo, resolved upon admission to the acute care floor. Patient pending w/u today and expected to return home w/spouse as long as imaging is clear Patient indp at base with spouse to assist as needed. No needs identified at this time to discharge home when medically cleared, likely close outpatient follow up PAOLA Whitt Discharge Planning/Care Management CM Discharge Assessment Start: 09/14/22 13:51 Freq: Status: Active Protocol: Document 09/14/22 13:51 JODI (Rec: 09/14/22 13:59 JODI [id number]) Discharge Planning Assessment Assigned Prepleater PAOLA Gonzalez DPOA/Assigned Designee Name Andreas Whittaker, spouse Contact Information [phone] Advance Directives? Yes Advance Directives on File No History Provided By Patient,Medical Record Prior Living Arrangements House Household Members spouse Type of transporation used prior to Drives own vehicle admit Independent with ADL's Yes Is patient alert and oriented? Yes Barriers to Discharge No Comment Home w/spouse expected today Discharge Plan Home Transportation Arrangement Family Referrals Initiated None needed
--- NOTE | 2022-09-14 14:46 | SLP.IPNOTE ---
Pt does not present with or complain of any difficulties or changes in speech, language, swallowing, or cognition as a result of her vertigo episode. Screen only at this time as full evaluation does not seem appropriate given current presentation, and pt is D/C per MD due to medically stable.
--- NOTE | 2022-09-14 14:48 | P.DS_ITS ---
History of Present Illness History of Present Illness Date Patient Seen: 09/14/22 Time Patient Seen: 14:49 Date of Onset of Symptoms: 09/12/22 Chief complaint: thinks she is having a stroke Narrative: Patient is a 62-year-old female essentially in excellent health except for hypertension who presents with acute-onset severe vertigo. Patient was in her usual state of health and was out sitting in the sun drinking a Pepsi with friends got up to do some yd work and been over to check a hose and suddenly started feeling a little dizzy. No palpitations chest pain she is had no fevers chills or other changes. She does did not feel well and this was about 130. She then went and laid down figured it was just a little overheating and be ginning having increasing dizziness. To the point where if she did not close her eyes she was going to throw up. She had no significant headaches visual symptoms no facial changes no numbness no tingling no motor changes otherwise. After 15 or 20 minutes see then crawled into her daughter and threw up. They brought some ice and now had been going about an hour hour and a half. She was brought to the emergency room. She was given Zofran and then started to feel better. She is almost completely resolved at this point. No previous issues like this. She has had some periods where she had some left arm numbness. But no other complaint or problem. No real risk factors for stroke. She has had some decreased hearing and some tinnitus. Has had some few episodes of previous dizziness but no other change Discharge Providers Provider Date of admission: 09/13/22 15:56 Discharge Date: 09/14/22 Primary care physician: Sean Rey MD Consults: 09/13/22 20:21 Consult to Discharge Planning Routine Comment: Consult to Occupational Therapy Evaluate & Treat Comment: Physician Instructions: Evaluate and treat Consult to Physical Therapy Evaluate & Treat Comment: Physician Instructions: Evaluate and Treat Consult to Speech Therapy Evaluate & Treat Comment: Physician Instructions: Evaluate and treat Discharge provider: Sean Rey MD Summary Hospital Course Discharge Diagnosis: Severe vertigo possible TIA Hypertension Hospital Course: Possible TIA. Patient was admitted in the hospital. She had basically resolved symptoms almost by the time she had the emergency room. MRI CT scan echo all showed normal evaluation. Telemetry did not show any atrial fibrillation. Patient was placed on an aspirin and has had no further symptoms. Unclear whether this is possible TIA or whether this is labyrinthine. Certainly no definable cause. Patient feels well other than fatigue now be discharged home. Vertigo severe. Actually resolved. Patient may or may not have had a stroke. Significant other was also vertiginous last week. But has had no other symptoms neither has she. Could this be viral as possible. Meniere's disease is unlikely. TIA still within the normal range workup cross but still possible. Will go home on aspirin. If any recurrence will consider meclizine or Valium. Hypertension. Stable. Will continue to follow. Status at Discharge Cognitive/behavioral status at discharge: oriented Functional status at discharge: independent ambulation Overall status at discharge: patient is progressing back to baseline Exam Vital Signs (past 8 hours): - 09/14/22 07:00 09/14/22 11:44 Temperature 97.7 F 97.5 F L Pulse Rate 68 65 Respiratory Rate 18 18 Blood Pressure 109/69 132/70 Pulse Oximetry 97 97 Oxygen Flow Rate 0 0 Oxygen Delivery Method Room Air Oxygen Flow Rate 0 Narrative Exam Narrative: Alert female smiling interactive mildly fatigued no acute distress Exam unchanged Objective Labs 09/13/22 15:02 09/13/22 15:02 Labs: Laboratory Results - last 24 hr 09/13/22 09/13/22 09/13/22 15:02 15:02 15:02 WBC 7.8 RBC 4.58 Hgb 13.2 Hct 38.7 MCV 84.5 MCH 28.9 MCHC 34.2 RDW 13.3 Plt Count 295 Neut % (Auto) 62.4 Lymph % (Auto) 28.3 [place] % (Auto) 6.4 Eos % (Auto) 2.2 Baso % (Auto) 0.7 Neut # (Auto) 4900 Lymph # (Auto) 2200 [place] # (Auto) 500 Eos # (Auto) 200 Baso # (Auto) 100 PT 11.6 INR 1.0 APTT 25 L Sodium 137 Potassium 3.3 L Chloride 103 Carbon Dioxide 25 BUN 21 H Creatinine 0.79 Estimated GFR > 60 BUN/Creatinine Ratio 26.6 H Glucose 134 H Calcium 9.6 Total Bilirubin 0.7 AST 24 ALT 26 Alkaline Phosphatase 65 Total Creatine Kinase 88 CK-MB (CK-2) TNP CK-MB (CK-2) Rel Index TNP Troponin I < 0.012 Total Protein 7.9 Albumin 4.6 Globulin 3.3 Albumin/Globulin Ratio 1.4 Urine Color Urine Appearance Urine pH Ur Specific [place] Urine Protein Urine Glucose (UA) Urine Ketones Urine Occult Blood Urine Nitrate Urine Bilirubin Urine Urobilinogen Ur Leukocyte Esterase Urine RBC Urine WBC Ur Squamous Epith Cells Amorphous Sediment Urine Bacteria Ur Culture Indicated? 09/13/22 16:10 WBC RBC Hgb Hct MCV MCH MCHC RDW Plt Count Neut % (Auto) Lymph % (Auto) [place] % (Auto) Eos % (Auto) Baso % (Auto) Neut # (Auto) Lymph # (Auto) [place] # (Auto) Eos # (Auto) Baso # (Auto) PT INR APTT Sodium Potassium Chloride Carbon Dioxide BUN Creatinine Estimated GFR BUN/Creatinine Ratio Glucose Calcium Total Bilirubin AST ALT Alkaline Phosphatase Total Creatine Kinase CK-MB (CK-2) CK-MB (CK-2) Rel Index Troponin I Total Protein Albumin Globulin Albumin/Globulin Ratio Urine Color [place] Urine Appearance Clear Urine pH 8.0 Ur Specific [place] 1.010 Urine Protein Negative Urine Glucose (UA) Negative Urine Ketones 1+ H Urine Occult Blood Negative Urine Nitrate Negative Urine Bilirubin Negative Urine Urobilinogen 0.2 Ur Leukocyte Esterase Negative Urine RBC None seen Urine WBC None seen Ur Squamous Epith Cells None seen Amorphous Sediment 1+ Urine Bacteria None seen Ur Culture Indicated? Cult not indicated PFSH Medical History H/O vaginal delivery Hypertension Surgical History H/O hysterectomy for benign disease Social History household members: spouse Smoking Status: Never smoker Discharge Assessment & Plan Assessment and Plan Assessment: Trending to normal. Plan of Treatment: Discharge home Discharge Plan Discharge Plan Patient Disposition: Home Discharge orders & Medications Prescriptions: New aspirin 81 mg Tablet,Delayed Release (Dr/Ec) 81 mg PO BEDTIME Qty: 100 0RF Continued amlodipine 2.5 mg Tablet 5 mg PO DAILY losartan 100 mg Tablet 100 mg PO DAILY meloxicam 15 mg tablet 15 mg PO DAILY Follow up/Referrals: Sean Rey MD [Primary Care Provider] - 1 Week Discharge Health Status Multidrug resistant organism: No MDRO Diet/Activity/Treatments Diet: Diet as Tolerated Skin/Wound/Dressing Care Report to your healthcare provider any signs of infection, such as:: chills, fever, night sweats and increased pain Visit Report/Discharge Packet Stand Alone Forms: Patient Portal/API, Stroke Signs & Symptoms Discharge Data Primary Care Provider: Sean Rey Attending Provider: Sean Rey Admit Date/Time: 09/13/22 15:56
--- NOTE | 2022-09-14 15:30 | PC.NURSE ---
Pt is A&OX4, VSS, afebrile on RA. She denies dizziness this a.m. She reports a very few Bouts of vision disturbances but few and intermittent. MRI and echo completed today. She is evaluated and cleared for home discharge with by PT/OT. She denies any further neuro deficits, stating nothing near what she experienced yesterday and she feels much improved. She is cleared for discharge and acknowledges medications as well as plan to schedule a follow up appt with MD Rey's office for next week.
--- NOTE | 2022-09-14 18:18 | DI.MRI.S_ITS ---
PROCEDURE: MR HEAD/BRAIN WO CON INDICATIONS: acute onset dizzyness TECHNIQUE: Noncontrast axial T1 spin echo, axial T2 fast spin echo, sagittal and axial FLAIR, coronal T2 fast spin echo, axial gradient echo, axial diffusion and ADC through the brain. COMPARISON: None. FINDINGS: Image quality: Excellent. CSF Spaces: Basal cisterns are patent. No extra-axial fluid collections. Ventricles are normal in size and shape. Brain: No intracranial masses or hemorrhage. A few punctate subcortical foci of hyperintense FLAIR signal are seen consistent with small vessel disease, however this is minimal. [place]/white matter interface is normal. Brainstem appears normal. Diffusion-weighted images demonstrate no acute ischemic insult. No chronic ischemic insults. Normal intravascular flow voids are present. Skull and face: Calvarium has normal marrow signal. Orbits appear normal. Sinuses: Sinuses and mastoids are clear. IMPRESSION: 1. No acute intracranial abnormality. 2. No acute ischemia. 3. Minimal punctate small vessel ischemic change. Dictated by: Shekhar Haile M.D. on 09/14/2022 at 10:51 Approved by: Shekhar Haile M.D. on 09/14/2022 at 10:54
== END 2022-09-14 15:20 | disposition home or self-care (01) ==
LOC: ED 15:39 → AC 15:56
PROVIDERS: Admitting Provider Family Medicine; Emergency Provider Emergency Medicine; PCP Family Medicine; Referring Provider Emergency Medicine; Visit Provider Family Medicine
DX: R42 Dizziness and giddiness (principal); I63.9 Cerebral infarction, unspecified; R29.700 NIHSS score 0; I10 Essential (primary) hypertension
CPT/HCPCS: 36415; 70450; 70496; 70498; 70551; 80053; 81001; 82550; 82962; 84484; 85025; 85610; 85730; 93005; 93010; 93306; 96361; 96374; 97162; 97165; 99284; 99285; G0378; J2405; Q9967

== ENCOUNTER → 2022-10-05 18:45 | Outpatient (CLI) | payer OTHER, SELFPAY ==
[2022-09-13 16:30] VITALS: BMI 24.2
--- NOTE | 2022-10-05 18:46 | DI.MRI.S_ITS ---
PROCEDURE: MR CERVICAL SPINE WO CON INDICATIONS: Spinal stenosis, cervical region TECHNIQUE: Noncontrast sagittal T1 spin echo and T2 fast spin echo, sagittal STIR, foraminal oblique sagittal T2 fast spin echo, and axial gradient echo or T2 fast spin echo through the cervical spine. COMPARISON: None. FINDINGS: Image quality: Excellent. Alignment and Curvature: There is loss of normal cervical lordosis. 2 mm of anterolisthesis C3 on C4. Bone Marrow: Marrow demonstrates normal overall signal. Mild reactive signal within the endplates adjacent to the cervical and upper thoracic spine. Spinal Cord: Visualized spinal cord has normal size and signal. No cerebellar tonsillar herniation. Paraspinous Soft Tissues: No paravertebral masses. Prevertebral soft tissues are normal in thickness. C2-C3: Congenital canal stenosis. Moderate disc desiccation. Mild diffuse disc bulge. Moderate canal stenosis. Mild bilateral foraminal stenosis. C3-C4: Congenital canal stenosis. Moderate disc desiccation. Mild diffuse disc bulge with superimposed small central protrusion. Mild facet and uncovertebral hypertrophy bilaterally Severe canal stenosis. Mild cord flattening. Moderate bilateral foraminal stenosis. C4-C5: Congenital canal stenosis. Moderate disc desiccation. Mild disc height loss and diffuse disc bulge. Mild facet and uncovertebral hypertrophy. Moderate to severe canal stenosis. Mild cord flattening. Severe bilateral foraminal stenosis with bilateral C5 nerve root compression. C5-C6: Congenital canal stenosis. Moderate disc desiccation. Mild diffuse disc bulge with superimposed right paracentral protrusion. Mild facet and uncovertebral hypertrophy bilaterally. Severe canal stenosis. Mild cord flattening. Severe bilateral foraminal stenosis with bilateral C6 nerve root compression. C6-C7: Congenital canal stenosis. Mild disc height loss. Moderate disc desiccation. Mild diffuse disc bulge/osteophyte. Mild facet and uncovertebral hypertrophy bilaterally. Moderate to severe canal stenosis. Minimal cord flattening. Severe bilateral foraminal stenosis with bilateral C7 nerve root compression. C7-T1: Mild disc desiccation and diffuse disc bulge with superimposed small central protrusion. Congenital canal stenosis. Mild facet and uncovertebral hypertrophy. Moderate canal stenosis. Moderate bilateral foraminal stenosis. IMPRESSION: 1. Diffuse congenital canal stenosis with superimposed disc and facet disease, as well as uncovertebral hypertrophy. 2. Multilevel canal stenoses, worst at C3-C4, C4-C5, C5-C6, and C6-C7 where there is associated cord flattening. 3. Multilevel foraminal stenoses, worst at C4-C5, C5-C6, and C6-C7, where there is associated intraforaminal nerve root compression. Recommend correlation with clinical symptoms to ascertain relevance of these findings. Dictated by: Donnie Deutsch M.D. on 10/06/2022 at 8:59 Approved by: Donnie Deutsch M.D. on 10/06/2022 at 9:02
== END ==
PROVIDERS: PCP Family Medicine; Referring Provider Neurological Surgery; Visit Provider Neurological Surgery
DX: M48.02 Spinal stenosis, cervical region (principal); M50.31 Other cervical disc degeneration, high cervical region; M47.812 Spondylosis without myelopathy or radiculopathy, cervical region
CPT/HCPCS: 72141

== ENCOUNTER → 2023-09-20 12:31 | Outpatient (CLI) | payer MEDICARE, OTHER, SELFPAY ==
[2022-09-13 16:30] VITALS: BMI 24.2
--- NOTE | 2023-09-20 12:36 | DI.RAD.S_ITS ---
PROCEDURE: XR CLAVICLE LT INDICATIONS: CLAVICLE PAIN TECHNIQUE: 2 views of the clavicle were acquired. COMPARISON: None. FINDINGS: Bones: No fractures or dislocations. Moderate acromioclavicular joint osteoarthritis is seen with joint space narrowing and prominent superior marginal osteophyte formation. Mild sternal clavicular joint osteoarthritic changes also seen with joint space narrowing and subchondral sclerosis. No suspicious bony lesions. Soft tissues: No suspicious soft tissue calcifications. IMPRESSION: No clavicular fracture or dislocation. Moderate acromioclavicular joint osteoarthritis and mild sternal clavicular joint osteoarthritis. Dictated by: Ezekiel Holliday M.D. on 09/20/2023 at 15:12 Approved by: Ezekiel Holliday M.D. on 09/20/2023 at 15:13
== END ==
PROVIDERS: Family Provider Family Medicine; PCP Family Medicine; Referring Provider Family Medicine; Visit Provider Family Medicine
DX: M19.012 Primary osteoarthritis, left shoulder (principal); M89.8X1 Other specified disorders of bone, shoulder
CPT/HCPCS: 73000

== ENCOUNTER → 2023-09-25 08:22 | Outpatient (CLI) | payer MEDICARE, OTHER, SELFPAY ==
[2022-09-13 16:30] VITALS: BMI 24.2
--- NOTE | 2023-09-25 | DI.MG.S_ITS ---
BILATERAL DIGITAL SCREENING MAMMOGRAM 3D/2D WITH CAD: 09/25/2023 CLINICAL: Routine screening. Comparison is made to exams dated: 04/22/2021 mammogram and 04/19/2020 mammogram - [facility]. There are scattered areas of fibroglandular density in both breasts (category b / 25%-50% glandular tissue). Current study was also evaluated with a Computer Aided Detection (CAD) system. No significant masses, calcifications, or other findings are seen in either breast. There has been no significant interval change. IMPRESSION: NEGATIVE There is no mammographic evidence of malignancy. A 1 year screening mammogram is recommended. Based on the Tyrer Cuzick model (a risk assessment model) the patient's lifetime risk is 6.0% and her 10 year risk is 2.9%. According to the ACR, ACS, and NCCN guidelines, an annual breast MRI exam along with mammogram is recommended if the patient's lifetime risk is 20% or greater. This exam was interpreted at Station ID: [id number]. NOTE: For mammograms, a report in lay terms will be sent to the patient. Approximately 15% of breast malignancies will not be visualized mammographically. In the management of a palpable breast mass, a negative mammogram must not discourage biopsy of a clinically suspicious lesion. Electronically Signed By: Teofilo alvarado/sera:09/25/2023 09:19:39 letter sent: Normal Exam ACR BI-RADS Category 1: Negative [id number]
== END ==
PROVIDERS: Family Provider Family Medicine; PCP Family Medicine; Referring Provider Family Medicine; Visit Provider Family Medicine
DX: Z12.31 Encounter for screening mammogram for malignant neoplasm of breast (principal); R92.323 Mammographic fibroglandular density, bilateral breasts
CPT/HCPCS: 77063; 77067